=== PATIENT | male | born 1965 | race Caucasian/White ===

== ENCOUNTER 2016-09-20 14:38 | Inpatient (IN) | payer OTHER ==
[~2016-09-20] VITALS: Ht 177.8 cm; Wt 112.9 kg
[2016-09-20 14:40] VITALS: BP 107/58; PULSE 88; RESP 18; TEMP 98; O2SAT 100
--- NOTE | 2016-09-20 14:40 | NUR ---
Arrived via S ambulance for bright red blood from colostomy. Placed in room 1. Placed on teletypesetter monitor, blood pressure machine and pulse oximeter. To gown for exam. Side rails up. Report given to Diane ALBERTO.
--- NOTE | 2016-09-20 14:45 | NUR ---
PT. PLACED IN BED 1
[2016-09-20] MEDS ORDERED: NS 500 ML IV SCH (14:46)
--- NOTE | 2016-09-20 14:50 | NUR ---
DR. WILLINGHAM AT BEDSIDE EXAMINING THE PT.
[2016-09-20] MEDS ORDERED: MORPHINE 4 MG/ML INJ. SYRINGE IVP ONE (15:00)
[2016-09-20] MEDS ORDERED: ONDANSETRON HCL 4 MG/2 ML VIAL IVP ONE (15:00)
--- NOTE | 2016-09-20 15:00 | NUR ---
X RAY AT BEDSIDE
--- NOTE | 2016-09-20 15:55 | NUR ---
PT. MEDICATED VIA PICC LINE, TOLERATED WELL
[2016-09-20 16:03] LABS: BASOPHILS % (AUTO) 0.6 % (0.0-2.0); EOSINOPHILS # (AUTO) 0.3 K/uL (0.0-0.4); EOSINOPHILS % (AUTO) 3.9 % (0.0-4.0); HEMATOCRIT 35.5 % (36-54); HEMOGLOBIN 11.3 g/dL (14.0-18.0); LYMPHOCYTES # (AUTO) 1.2 K/uL (1.0-5.5); LYMPHOCYTES % (AUTO) 14.7 % (20.5-51.5); MEAN CORPUSCULAR HEMOGLOBIN 25 pg (27-31); MEAN CORPUSCULAR HGB CONC 32 % (32-36); MEAN CORPUSCULAR VOLUME 78 fL (79.0-98.0); MONOCYTES # (AUTO) 0.5 K/uL (0.0-1.0); MONOCYTES % (AUTO) 6.8 % (1.7-9.3); NEUTROPHILS # (AUTO) 5.9 K/uL (1.8-7.7); PLATELET COUNT (AUTO) 219 K/uL (130-430); RED BLOOD CELL COUNT(AUTO) 4.54 MIL/uL (4.2-6.2); RED CELL DISTRIBUTION WIDTH 15.8 % (9.0-15.0); WHITE BLOOD COUNT (AUTO) 7.9 K/uL (4.8-10.8)
[2016-09-20 16:08] LABS: CALCIUM 8.7 mg/dL (8.4-11.0); CREATININE 2.17 mg/dL (0.55-1.30); POTASSIUM 4.3 mmol/L (3.5-5.1)
[2016-09-20 16:23] LABS: ALBUMIN 2.9 g/dL (3.4-4.8); TOTAL BILIRUBIN 0.2 mg/dL (0.0-1.0); TOTAL PROTEIN, SERUM 7.5 g/dL (6.4-8.3)
[2016-09-20 16:35] LABS: PROTHROMBIN TIME 10.9 SECS (9.5-12.5)
--- NOTE | 2016-09-20 16:45 | NUR ---
# 16 FR Olson catheter with use of sterile technique. Immediate return of 20 cc YELLOW urine noted. Bedside drainage bag placed below level of bladder. Urine sample collected and sent to lab. Pt tolerated procedure WELL. Patient arrived with olson in place, changed due to standard of practice prior to admission.
--- NOTE | 2016-09-20 17:05 | NUR ---
Patient will be admitted to care of DR. SHAH. Admitted to TELE unit. Will go to room 104 A Summary report printed. Report given to LIT ALBERTO.
--- NOTE | 2016-09-20 17:18 | NUR ---
ADMISSION NOTE Received patient from ER via gurney. Patient admitted with diagnosis of . Patient is awake, alert, oriented X 3. Patient oriented to hospital room, call light, toileting, pain management and safety-teach back done. Patient informed that LIT will be HIS nurse and that their room number is 104A. Personal belongings checked and Belongings List documented. Call light within reach.
[2016-09-20] MEDS ORDERED: LORazepam 2 MG/ML VIAL IVP PRN (17:45)
[2016-09-20] MEDS ORDERED: ACETAMINOPHEN 325 MG TABLET PO PRN (17:45)
[2016-09-20] MEDS ORDERED: ONDANSETRON HCL 4 MG/2 ML VIAL IVP PRN (17:45)
[2016-09-20] MEDS ORDERED: ZOLPIDEM TARTRATE 5 MG TABLET PO PRN (17:45)
[2016-09-20] MEDS ORDERED: POTASSIUM CHLORIDE 10 MEQ TAB.PRT.SR PO PRN (17:45)
[2016-09-20] MEDS ORDERED: MAGNESIUM SULFATE 50 ML IV PRN (17:45)
[2016-09-20] MEDS ORDERED: DOCUSATE SODIUM 100 MG CAPSULE PO PRN (17:45)
[2016-09-20] MEDS: MORPHINE 2 MG/ML INJ. SYRINGE IVP PRN ×2 (18:24→22:31)
[2016-09-20 18:27] VITALS: BP 100/59; PULSE 72; RESP 16; TEMP 98.2; O2SAT 98
--- NOTE | 2016-09-20 18:34 | NUR ---
GI CONSULT (Dr Pinzon o/c) Consult was called, , dianne Cintron, "Dr Pinzon is scientist electronics" RE GI bleed
[2016-09-20] MEDS ORDERED: HYDR2TAB34 PO (18:39)
[2016-09-20] MEDS ORDERED: LIP20 PO (18:41)
[2016-09-20] MEDS ORDERED: GABA-531 PO (18:54)
--- NOTE | 2016-09-20 19:15 | NUR ---
change of shift6.initial pt's assessment.pt.presents trach:talking:able 2 convey needs:mouth articulate words: understood.pt.presents paraplegic status.resting upon air-mattress.pt.presents olson catheter. pt.presents picc- line:location:rt.bicept:2-lumes.iv fluids infusing via line.pt.presents colostomy.call light w/in pt's reach.
[2016-09-20] MEDS ORDERED: MIDO10TA PO (19:25)
[2016-09-20 19:30] VITALS: BP 105/66; PULSE 85; RESP 18; TEMP 97.6; O2SAT 100
[2016-09-20] MEDS ORDERED: FAMO20TA8 PO (19:33)
[2016-09-20] MEDS ORDERED: QUET200T5 PO (19:35)
--- NOTE | 2016-09-20 19:35 | NUR ---
notes received the pt from the day nurse. pt a/a/ox4 picc line intact to rt upper arm,no redness or swelling noted trach intact with t bar in place at 2l/min.monitor in place and shows.SR olson catheter intact and draining clear yellow urine.colostomy bag intact but is empty.pt is a paraplegic call light within reach,safety measures in progress.pt watching tv with no complaints.continue to monitor.
[2016-09-20] MEDS ORDERED: ARIP2TAB9 PO (19:36)
[2016-09-20] MEDS ORDERED: TRAZ-123 PO (19:37)
--- NOTE | 2016-09-20 20:00 | NUR ---
pt.assessed.pt.presents quiescent affect;calm,viewing tv programming.2 clarify pt's dietary status.josy placed telephone call 2 the
--- NOTE | 2016-09-20 20:33 | NUR ---
notes call placed to dr la for a diet order.
--- NOTE | 2016-09-20 20:44 | NUR ---
Paged Dr Ness,[phone] Dr Ness answered & I transferred the call to LUIS ALBERTO Fraire.
--- NOTE | 2016-09-20 20:52 | NUR ---
notes dr la called back and gave an order.
--- NOTE | 2016-09-20 20:55 | NUR ---
notes colostomy bag full and was changed,stool is brown liquid with no blood seen.
[2016-09-20] MEDS ORDERED: FAMOTIDINE 20 MG TABLET PO SCH (21:00)
--- NOTE | 2016-09-20 21:35 | NUR ---
notes mrsa sent to the lab,sandwich and juice given.
--- NOTE | 2016-09-20 22:00 | NUR ---
pt.assessed.pt.presents quiescent affect;calm,viewing tv programming.
--- NOTE | 2016-09-20 22:30 | NUR ---
pt.requested pain medication.i have administered morphine:2mg ivp.vis picc line.call light w/in pt's reach.
--- NOTE | 2016-09-20 23:25 | NUR ---
notes went to put seizure pads on the bed but pt states he only had 1 seizure in 2009.refusing the pads.
[2016-09-21] VITALS (8 sets, daily range): BP systolic 91–136; BP diastolic 54–76; PULSE 62–97; RESP 18–20; TEMP 97.2–99.8; O2SAT 95–100
--- NOTE | 2016-09-21 | NUR ---
pt.assessed.pt.presents quiescent affect;calm,asleep.iv fluids infusing.call light w/in pt's reach.
--- NOTE | 2016-09-21 01:27 | NUR ---
notes pt sleeping,no distress noted.continue to monitor.
--- NOTE | 2016-09-21 02:00 | NUR ---
pt.assessed.pt.presents quiescent affect;calm,asleep,call light w/in pt's reach.
[2016-09-21] MEDS: MORPHINE 2 MG/ML INJ. SYRINGE IVP PRN ×2 (02:28→06:41)
--- NOTE | 2016-09-21 02:30 | NUR ---
pt.requested pain medication:i have administered morphine:2mg ivp via picc line.i have set-up the pt.4 suction.i have provided suction 2 oral cavity,i have provided deep-suction 2 trach.i have cleaned and provided trach care.i have changed the iv fluids primary line:line was cut& leaking.i have provided ice-chips 2 maintain fresh oral cavity.
--- NOTE | 2016-09-21 03:18 | NUR ---
notes pt awake and was suctioned by the RN ,trach care also given with dressing change.continue to monitor.
--- NOTE | 2016-09-21 04:00 | NUR ---
pt.assessed.pt.presents quiescent affect;calm,asleep.call light placed w/in pt's reach.
[2016-09-21] MEDS: D5NS 1,000 ML IV SCH ×2 (05:03→09:39)
--- NOTE | 2016-09-21 05:24 | NUR ---
notes pt sleeping continue to monitor.
--- NOTE | 2016-09-21 06:26 | NUR ---
closing notes pt awake ,alert watching tv with no complaints,will endorse the care of the pt to the day nurse.
--- NOTE | 2016-09-21 06:36 | NUR ---
pt.requesting pain medication:i have administered morphine:2mg ivp.via picc line.call light placed w/in pt's reach. pt.requested cranberry juice x 2 cups.
[2016-09-21 07:21] LABS: BASOPHILS % (AUTO) 0.5 % (0.0-2.0); EOSINOPHILS # (AUTO) 0.3 K/uL (0.0-0.4); EOSINOPHILS % (AUTO) 3.9 % (0.0-4.0); HEMATOCRIT 32.2 % (36-54); HEMOGLOBIN 10.4 g/dL (14.0-18.0); LYMPHOCYTES # (AUTO) 1.1 K/uL (1.0-5.5); LYMPHOCYTES % (AUTO) 15.1 % (20.5-51.5); MEAN CORPUSCULAR HEMOGLOBIN 25 pg (27-31); MEAN CORPUSCULAR HGB CONC 32 % (32-36); MEAN CORPUSCULAR VOLUME 78 fL (79.0-98.0); MONOCYTES # (AUTO) 0.5 K/uL (0.0-1.0); MONOCYTES % (AUTO) 7.4 % (1.7-9.3); NEUTROPHILS # (AUTO) 5.3 K/uL (1.8-7.7); NEUTROPHILS % (AUTO) 73.1 % (40.0-70.0); PLATELET COUNT (AUTO) 234 K/uL (130-430); RED BLOOD CELL COUNT(AUTO) 4.14 MIL/uL (4.2-6.2); RED CELL DISTRIBUTION WIDTH 15.7 % (9.0-15.0); WHITE BLOOD COUNT (AUTO) 7.2 K/uL (4.8-10.8)
[2016-09-21 07:26] LABS: CALCIUM 8.4 mg/dL (8.4-11.0); CREATININE 2.38 mg/dL (0.55-1.30); POTASSIUM 4.1 mmol/L (3.5-5.1)
--- NOTE | 2016-09-21 08:00 | NUR ---
PT IN BED, AAO, NO SOB, NO DISTRESS, TRACH INTACT AND IN PLACE, PT STILL C/O PAIN, TOLD HIM HIS BP IS LOW AND PAIN MED IS NOT DUE YET.
[2016-09-21] MEDS: PANTOPRAZOLE SODIUM 40 MG/VIAL (PROTONIX) IV SCH (09:29)
--- NOTE | 2016-09-21 09:45 | NUR ---
Notes Page sent out to Dr. Ness to inform of patient's complaint of pain.
--- NOTE | 2016-09-21 09:48 | NUR ---
Nutrition Update Alvaro Scale 13 noted. Pt admitted for GI bleed. Diet: regular BMI: 35.9 kg/m2 RD to follow per nutrition care standards.
--- NOTE | 2016-09-21 10:00 | NUR ---
PT IN BED, AA, NO C/O PAIN THIS TIME.
--- NOTE | 2016-09-21 11:52 | NUR ---
PT IN BED, RESTING COMFORTABLY, ASLEEP, NO S/SX PAIN, NO DISTRESS
[2016-09-21] MEDS: HYDROmorphone 2 MG/ML VIAL IVP PRN ×2 (12:53→19:16)
--- NOTE | 2016-09-21 14:00 | NUR ---
NOTES NO C/O PAIN THIS TIME, PT RESTING COMPFORTABLY IN BED, NO SOB, NO DISTRESS, EMPTY COLOSTOMY BAG.
[2016-09-21] MEDS ORDERED: BISACODYL 5 MG TABLET.DR (DULCOLAX) PO ONE (17:00)
[2016-09-21 17:26] LABS: BILIRUBIN,URINE NEGATIVE (NEGATIVE); BLOOD, URINE 3+ (NEGATIVE); CLARITY/URINE CLOUDY (CLEAR); COLOR,URINE YELLOW (YELLOW); GLUCOSE,URINE NEGATIVE (NEGATIVE); KETONES,URINE NEGATIVE (NEGATIVE); LEUKOCYTE ESTERASE ,URINE 3+ (NEGATIVE); NITRITE, URINE POSITIVE (NEGATIVE); PROTEIN URINE 2+ (NEGATIVE); UROBILINOGEN,URINE 0.2 (0.2-1.0)
[2016-09-21 17:53] LABS: BACTERIA,URINE MODERATE /HPF (None Seen); RBC,URINE 20-50 /HPF (0-3); WBC,URINE >100 /HPF (0-3)
[2016-09-21 17:54] LABS: MUCUS,URINE None Seen /LPF (None Seen)
[2016-09-21] MEDS ORDERED: GOLYTELY / COLYTE SOLUTION 4 LITERS PO ONE (18:00)
--- NOTE | 2016-09-21 18:00 | NUR ---
NOTES; PT IN BED, TOLD PT THAT WE WILL START GOLYTLY TO CLEAM HIS BOWELS FOR THE COLONOSPY IN AM, PT MADE AWARE THAT HE WILL BE NPO AFTER MIDNIGHT.
--- NOTE | 2016-09-21 19:00 | NUR ---
CLOSING NOTES, PT IN BED, PT SIGNED CONSENT FOR COLONOSCOPY AND GIVEN PREP MEDICATIONS. PT RECEIVED PAIN MEDS REQUESTED.
--- NOTE | 2016-09-21 20:03 | NUR ---
Opening Note Report received from Mauro ALBERTO. Patient awake. Paraplegic. Trach is connected to t-bar with 2L O2. Suction tray is at the bedside. RUE PICC line running IV fluids. Colostomy bag on the right abdomen. Patient is scheduled for a colonoscopy tomorrow. Prep is at the bedside. Will encourage patient to drink.
--- NOTE | 2016-09-21 22:03 | NUR ---
Rounds Colostomy bag drained. Encouraged patient to drink more of the GI prep.
[2016-09-22] VITALS (9 sets, daily range): BP systolic 86–118; BP diastolic 50–72; PULSE 85–102; RESP 12–20; TEMP 96.4–98; O2SAT 92–100; Ht 177.8 cm; Wt 112.9 kg
--- NOTE | 2016-09-22 00:10 | NUR ---
Rounds Patient is resting in bed. Bed bath was offered by the CERTIFIED ANESTHESIOLOGIST ASSISTANT but patient refused. Patient is has thick, white secretions. Deep suction preformed.
[2016-09-22] MEDS: HYDROmorphone 2 MG/ML VIAL IVP PRN ×5 (02:04→23:36)
[2016-09-22] MEDS: D5NS 1,000 ML IV SCH ×2 (02:09→14:36)
--- NOTE | 2016-09-22 02:10 | NUR ---
Rounds Bed bath was offered to the patient again. Bath was refused by patient. Deep suction was preformed. Patient tolerated well. Ileostomy bag was emptied.
--- NOTE | 2016-09-22 04:15 | NUR ---
Rounds Patient is currently sleeping in bed. GI prep has been offered to the patient several times. Patient has been refusing to take GI prep. Will follow up with Dr. Sung later on this morning.
--- NOTE | 2016-09-22 05:47 | NUR ---
Rounds Patient refused to have his colostomy bag drained and to drink any of more of the GI prep. Will call MD later on this morning.
--- NOTE | 2016-09-22 06:25 | NUR ---
MD Called Called Dr. Sung to notify him that the patient is refusing to drink the GI prep. Waiting for a call back.
--- NOTE | 2016-09-22 07:00 | NUR ---
HANDOFF ROUNDS AT PATIENT BEDSIDE.
[2016-09-22 07:39] LABS: BASOPHILS % (AUTO) 0.4 % (0.0-2.0); EOSINOPHILS # (AUTO) 0.5 K/uL (0.0-0.4); EOSINOPHILS % (AUTO) 7.7 % (0.0-4.0); HEMATOCRIT 30.2 % (36-54); HEMOGLOBIN 9.7 g/dL (14.0-18.0); LYMPHOCYTES # (AUTO) 0.9 K/uL (1.0-5.5); LYMPHOCYTES % (AUTO) 14.1 % (20.5-51.5); MEAN CORPUSCULAR HEMOGLOBIN 25 pg (27-31); MEAN CORPUSCULAR HGB CONC 32 % (32-36); MEAN CORPUSCULAR VOLUME 79 fL (79.0-98.0); MONOCYTES # (AUTO) 0.5 K/uL (0.0-1.0); MONOCYTES % (AUTO) 7.6 % (1.7-9.3); NEUTROPHILS # (AUTO) 4.6 K/uL (1.8-7.7); NEUTROPHILS % (AUTO) 70.2 % (40.0-70.0); PLATELET COUNT (AUTO) 212 K/uL (130-430); RED BLOOD CELL COUNT(AUTO) 3.82 MIL/uL (4.2-6.2); RED CELL DISTRIBUTION WIDTH 16.1 % (9.0-15.0); WHITE BLOOD COUNT (AUTO) 6.5 K/uL (4.8-10.8)
[2016-09-22 07:48] LABS: PROTHROMBIN TIME 11.2 SECS (9.5-12.5)
[2016-09-22 07:57] LABS: CALCIUM 8.1 mg/dL (8.4-11.0); CREATININE 2.34 mg/dL (0.55-1.30)
--- NOTE | 2016-09-22 09:00 | NUR ---
ROUNDS TO PATIENT. GIVEN PRN FOR PAIN THIS HOUR.
[2016-09-22] MEDS: PANTOPRAZOLE SODIUM 40 MG/VIAL (PROTONIX) IV SCH (09:35)
--- NOTE | 2016-09-22 11:00 | NUR ---
PATIENT ENCOURAGED TO HAVE MORE GOLYTELY. HAS 4 CUPS (240ML) OF PREP REMAINING.
--- NOTE | 2016-09-22 11:45 | NUR ---
PULMONARY CONSULT Spoke with Mila regarding request for consultation with Dr. Castro ([phone]) for reason: pt wants decannulation.
[2016-09-22] MEDS ORDERED: cefTRIAXone 1 GM in D5W 50 ML IV ONE (12:00)
[2016-09-22] MEDS ORDERED: IPRATROPIUM/ALBUTEROL SULFATE 3 ML AMPUL.NEB INH PRN (12:15)
--- NOTE | 2016-09-22 13:00 | NUR ---
WOUND CARE ROUNDS. INTERDRY AND Eunice-RAYMUNDO RECOMMENDATION IMPLEMENTED.
--- NOTE | 2016-09-22 13:48 | NUR ---
UTILIZATION REVIEW NURSE DENIES REQUEST FOR REMOVAL OF TRACH AT THIS TIME. IT WILL TAKE MORE WORK PRIOR TO HAVING THIS INTERVENTION.
[2016-09-22] MEDS ORDERED: MIDAZOLAM HCL 5 MG/5 ML VIAL ONE (16:34)
[2016-09-22] MEDS ORDERED: fentaNYL CITRATE/PF 100 MCG/2 ML AMP ONE (16:35)
[2016-09-22] MEDS ORDERED: fentaNYL CITRATE/PF 100 MCG/2 ML AMP IVP ONE (17:15)
[2016-09-22] MEDS ORDERED: MIDAZOLAM HCL 2 MG/2 ML VIAL (VERSED) IVP ONE (17:15)
[2016-09-22] MEDS: IPRATROPIUM BROM 0.5 MG/2.5 ML VIAL.NEB (ATROVENT) INH SCH (19:53)
[2016-09-22] MEDS: ALBUTEROL SULFATE 0.083% 2.5 MG/3 ML VIAL.NEB INH SCH (19:54)
--- NOTE | 2016-09-22 20:00 | NUR ---
OPENING NOTE RECEIVED PATIENT AWAKE RESTING IN BED. NO S/S RESP DISTRESS. TRACH NOTED WITH TBAR AT 2LITERS.. 02 SAT 100% MCCAULEY CATH WITH CLEAR YELLOW URINE. NEW SECURE LOCK DEVICE IN PLACE. COLOSTOMY TO RIGHT LOWER QUADRANT WITH GREENISH LIQUID. RIGHT UPPER ARM PICC DOUBLE LUMEN D5NS a 90ML/H.SEIZURE PADS IN PLACE FOR SEIZURE PRECAUTIONS. SAFETY PRECAUTIONS IN PLACE.
--- NOTE | 2016-09-22 23:30 | NUR ---
PAIN PAIN MEDICATIONS GIVEN NEEDED FOR PAIN IN LEGS. WILL CONTINUE TO MONITOR AND REASSESS PAIN.
[2016-09-23 00:22] VITALS: BP 116/74; PULSE 89; RESP 19; TEMP 97.4; O2SAT 99
[2016-09-23] MEDS: ALBUTEROL SULFATE 0.083% 2.5 MG/3 ML VIAL.NEB INH SCH ×3 (00:34→13:55)
[2016-09-23] MEDS: IPRATROPIUM BROM 0.5 MG/2.5 ML VIAL.NEB (ATROVENT) INH SCH ×3 (00:34→13:55)
--- NOTE | 2016-09-23 03:10 | NUR ---
ROUNDS PT REPOSITIONED FOR COMFORT AND SAFETY. SUCTIONED NEEDED. PAIN MED TO BE GIVEN WHEN DUE AT 0330.
[2016-09-23] MEDS: D5NS 1,000 ML IV SCH (03:27)
[2016-09-23] MEDS: HYDROmorphone 2 MG/ML VIAL IVP PRN ×4 (03:28→15:48)
[2016-09-23 04:32] VITALS: BP 112/66; PULSE 86; RESP 18; TEMP 98.6; O2SAT 99
[2016-09-23 07:14] LABS: BASOPHILS % (AUTO) 0.4 % (0.0-2.0); EOSINOPHILS # (AUTO) 0.3 K/uL (0.0-0.4); EOSINOPHILS % (AUTO) 4.5 % (0.0-4.0); HEMATOCRIT 29.6 % (36-54); HEMOGLOBIN 9.4 g/dL (14.0-18.0); LYMPHOCYTES # (AUTO) 0.9 K/uL (1.0-5.5); LYMPHOCYTES % (AUTO) 12.7 % (20.5-51.5); MEAN CORPUSCULAR HEMOGLOBIN 25 pg (27-31); MEAN CORPUSCULAR HGB CONC 32 % (32-36); MEAN CORPUSCULAR VOLUME 79 fL (79.0-98.0); MONOCYTES # (AUTO) 0.6 K/uL (0.0-1.0); MONOCYTES % (AUTO) 7.6 % (1.7-9.3); NEUTROPHILS # (AUTO) 5.5 K/uL (1.8-7.7); NEUTROPHILS % (AUTO) 74.8 % (40.0-70.0); PLATELET COUNT (AUTO) 204 K/uL (130-430); RED BLOOD CELL COUNT(AUTO) 3.77 MIL/uL (4.2-6.2); RED CELL DISTRIBUTION WIDTH 15.9 % (9.0-15.0); WHITE BLOOD COUNT (AUTO) 7.3 K/uL (4.8-10.8)
[2016-09-23 07:24] LABS: CALCIUM 7.9 mg/dL (8.4-11.0); CREATININE 2.2 mg/dL (0.55-1.30); POTASSIUM 3.3 mmol/L (3.5-5.1)
[2016-09-23 07:59] VITALS: BP 120/55; PULSE 109; RESP 18; TEMP 97.6; O2SAT 94
--- NOTE | 2016-09-23 08:00 | NUR ---
AM ROUNDS: PATIENT LYING IN THE BED,AWAKE,ALERT AND ORIENTED X3. WITH TRACH,T-BAR AT 2L/MIN,GOOD SATURATION.RIGHT UPPER ARM PICCLINE,IVF ON GOING,IN PLACED. WITH RIGHT QUADRANT COLOSTOMY BAG,WITH BROWNISH COLOR SOFT FORM STOOLS AND SOME LIQUID NOTED. NO DISTRESS THIS TIME. CALL LIGHT WITH IN REACH. NEEDS ATTENDED TO.
[2016-09-23] MEDS ORDERED: cefTRIAXone 1 GM in D5W 50 ML IV SCH (09:00)
[2016-09-23] MEDS ORDERED: 0.45% NACL 1,000 ML IV SCH (09:15)
[2016-09-23] MEDS: PANTOPRAZOLE SODIUM 40 MG/VIAL (PROTONIX) IV SCH (09:33)
--- NOTE | 2016-09-23 10:10 | NUR ---
ROUNDS: RT SUCTIONED VIA TRACH,OBTAINED LARGE AMOUNT OF SCHULTZ COLOR DISCHARGES. STABLE.
--- NOTE | 2016-09-23 11:02 | NUR ---
Consultation Called Reason for consultation: ostomy malfunction was consult called: yes person who was notified: Nisha Consulting Physician: Michelet Pires
--- NOTE | 2016-09-23 11:20 | NUR ---
SURGEON : SPOKE WITH DR RIVERA AND WILL SEE PT TODAY.
--- NOTE | 2016-09-23 11:33 | NUR ---
PAIN MEDS: C/O RIGHT LEG PAIN AND DUE IV PAIN MEDS GIVEN PER REQUEST.
[2016-09-23 12:57] VITALS: BP 124/62; PULSE 107; RESP 18; TEMP 97.6; O2SAT 93
--- NOTE | 2016-09-23 13:00 | NUR ---
ROUNDS: RT CAME DID BREATHING TREATMENT. NO DISTRESS.
--- NOTE | 2016-09-23 13:08 | NUR ---
DISCHARGE PLANNING DC planning back to [facility]. Faxed referral [phone]. will follow up. Addendum: 09/23/16 at 1445 by Alexsandra MACK Spoke with Tremayne in admitting at [facility] patient assigned to room [facility] RN to report [phone], bed available after 7pm today. Called [facility] ambulance [phone] spoke with Katharina arranged CCT ([facility] w/O2) transport sweet pickle maker 7pm. Placed transportation packet in nurse station. RN Lucinda made aware. Called patient brother Reymundo Nixon [phone] call was answered and DCP was told had wrong number, confirmed number on facesheet with man who answered the phone and said right number but no Reymundo Nixon at the number that was called. Addendum: 09/23/16 at 1504 by Alexsandra Rodríguez DP Called [facility] ambulance [phone] placed CCT transport on will call. Addendum: 09/23/16 at 1657 by Alexsandra Rodríguez DP Per DOLLY Jane patient cleared for discharge. Called [facility] ambulance [phone] spoke with Pebbles loja CCT transport sweet pickle maker soonest available 6:30pm. DOLLY Jane made aware.
--- NOTE | 2016-09-23 15:00 | NUR ---
ROUNDS: RESTING. TRACH T-BAR 2L/MIN,TOLERATED BY THE PATIENT.
--- NOTE | 2016-09-23 15:50 | NUR ---
PAIN MEDS: C/O RIGHT LEG PAIN AND DUE IV PAIN MEDS GIVEN PER REQUEST.
[2016-09-23 16:36] VITALS: BP 132/76; PULSE 90; RESP 18; TEMP 97; O2SAT 98
[2016-09-23 16:56] VITALS: BP 132/76; PULSE 111; RESP 18; TEMP 97; O2SAT 98
--- NOTE | 2016-09-23 17:16 | NUR ---
REPORT: REPORT GIVEN TO KELSEY ALBERTO FROM [facility].
--- NOTE | 2016-09-23 17:31 | NUR ---
PAGED: SPOKE WITH DR SHAH AND INFORMED HIM PATIENT WAS CLEARED BY DR RIVERA.WITH ORDERS DC TRANSFER BACK TO [facility] ,KEEP PICCLINE AND MCCAULEY IN.CONTINUE IV ROCEPHINE X 5 MORE DAYS.
--- NOTE | 2016-09-23 19:35 | NUR ---
dc transfer: transition care document given to ambulance staff.piccline and olson kept in as ordered.ileostomy care rendered and changed new bag.on trach t-bar 2l/min,good saturation.[facility] ambulance with cct transported patient back to [facility] in stable condition.
== END 2016-09-23 19:35 | DRG 377 ==
LOC: SED 14:38 → STU 16:33 → SMU 09-21 18:44
PROVIDERS: ADMIT General Practice; ATTEND General Practice
PROC: 0DJD8ZZ Inspection of Lower Intestinal Tract, Via Natural or Artificial Opening Endoscopic (ICD-10-PCS; principal; 2016-09-22 16:00)
DX: K92.2 Gastrointestinal hemorrhage, unspecified (principal); N17.0 Acute kidney failure with tubular necrosis; J96.10 Chronic respiratory failure, unspecified whether with hypoxia or hypercapnia; G82.20 Paraplegia, unspecified; E44.0 Moderate protein-calorie malnutrition; N39.0 Urinary tract infection, site not specified; G89.29 Other chronic pain; E66.01 Morbid (severe) obesity due to excess calories; E78.5 Hyperlipidemia, unspecified; G40.909 Epilepsy, unspecified, not intractable, without status epilepticus; D64.9 Anemia, unspecified; F20.9 Schizophrenia, unspecified; Z93.0 Tracheostomy status; Z93.2 Ileostomy status; Z93.3 Colostomy status; Z88.0 Allergy status to penicillin; Z88.8 Allergy status to other drugs, medicaments and biological substances; Z68.35 Body mass index [BMI] 35.0-35.9, adult; Z87.891 Personal history of nicotine dependence
CPT/HCPCS: 36415; 45378; 71010; 80048; 80053; 81000-TC; 83605; 83735-TC; 83880; 85025; 85610-TC; 85730-TC; 86886; 86900; 86901; 87040-TC; 87081; 87086; 87186-TC; 93005; 94640; 94760; 96374; 96375; 99285; A5061; C9113; J0696; J1170; J2250; J2270; J2405; J3010; J7042; J7060

== ENCOUNTER 2016-10-14 18:23 | Inpatient (IN) | payer OTHER ==
[~2016-10-14] VITALS: Ht 175.3 cm; Wt 113.9 kg
[2016-10-14 18:23] VITALS: PULSE 95; RESP 24; TEMP 98.2; O2SAT 100
[~2016-10-14 18:23] MED LIST: ARIP2TAB9 PO; FAMO20TA8 PO; GABA-531 PO; HYDR2TAB34 PO; LIP20 PO; MIDO10TA PO; QUET200T5 PO; TRAZ-123 PO
--- NOTE | 2016-10-14 18:23 | NUR ---
Placed in room 08, sent from Jennifer Herron for low ph 7.14, pO2 204 abg done today. Placed on site monitor, blood pressure machine and pulse oximeter. To gown for exam. Side rails up.
[2016-10-14] MEDS ORDERED: IPRATROPIUM BROM 0.5 MG/2.5 ML VIAL.NEB (ATROVENT) IH ONE (18:30)
[2016-10-14] MEDS ORDERED: ALBUTEROL SULFATE 0.083% 2.5 MG/3 ML VIAL.NEB IH ONE (18:30)
--- NOTE | 2016-10-14 18:31 | NUR ---
RT at bedside for ABG draw
--- NOTE | 2016-10-14 18:36 | NUR ---
MSE complete by Dr. Lobo
[2016-10-14 18:51] LABS: ABG TOTAL HEMOGLOBIN 11.7 G/dL (12.0-18.0); BLOOD GAS BASE EXCESS -13.3 mmol/L (-3.0-3.0); BLOOD GAS COHb% 0.1 % (0.5-1.5); BLOOD GAS HHB 1.6 % (0.0-6.0); BLOOD GAS PH 7.169 (7.350-7.450); BLOOD O2Hb% 97.6 % (94.0-97.0)
[2016-10-14] MEDS ORDERED: ALBUTEROL SULFATE 0.083% 2.5 MG/3 ML VIAL.NEB INH ONE (19:03)
[2016-10-14] MEDS ORDERED: SIME80TA PO (19:08)
[2016-10-14] MEDS ORDERED: GUAI600T86 PO (19:08)
[2016-10-14] MEDS ORDERED: BACL10TA PO (19:08)
[2016-10-14] MEDS ORDERED: LEVE500T13 PO (19:08)
[2016-10-14] MEDS ORDERED: IPRA0.2S6 INH (19:08)
[2016-10-14] MEDS ORDERED: HYDR-1189 PO (19:08)
[2016-10-14] MEDS ORDERED: ALBU2.5V7 INH ×2 (19:08)
--- NOTE | 2016-10-14 19:08 | NUR ---
Medication reconciliation completed with information provided by Jennifer Herron. Any prior medication reconciliation on file was reviewed and corrected.
[2016-10-14 19:13] LABS: CALCIUM 8.5 mg/dL (8.4-11.0); CREATININE 3.02 mg/dL (0.55-1.30); POTASSIUM 4.4 mmol/L (3.5-5.1)
[2016-10-14 19:19] LABS: BASOPHILS # (AUTO) 0.1 K/uL (0.0-0.2); BASOPHILS % (AUTO) 0.7 % (0.0-2.0); EOSINOPHILS # (AUTO) 0.5 K/uL (0.0-0.4); EOSINOPHILS % (AUTO) 5.6 % (0.0-4.0); HEMATOCRIT 35.3 % (36-54); HEMOGLOBIN 11.5 g/dL (14.0-18.0); LYMPHOCYTES # (AUTO) 1.1 K/uL (1.0-5.5); LYMPHOCYTES % (AUTO) 12.9 % (20.5-51.5); MEAN CORPUSCULAR HEMOGLOBIN 25 pg (27-31); MEAN CORPUSCULAR HGB CONC 33 % (32-36); MEAN CORPUSCULAR VOLUME 77 fL (79.0-98.0); MONOCYTES # (AUTO) 0.6 K/uL (0.0-1.0); MONOCYTES % (AUTO) 7.1 % (1.7-9.3); NEUTROPHILS # (AUTO) 6.3 K/uL (1.8-7.7); NEUTROPHILS % (AUTO) 73.7 % (40.0-70.0); PLATELET COUNT (AUTO) 332 K/uL (130-430); RED BLOOD CELL COUNT(AUTO) 4.58 MIL/uL (4.2-6.2); RED CELL DISTRIBUTION WIDTH 17.1 % (9.0-15.0); WHITE BLOOD COUNT (AUTO) 8.6 K/uL (4.8-10.8)
[2016-10-14 19:21] LABS: ALBUMIN 3.1 g/dL (3.4-4.8); TOTAL BILIRUBIN 0.2 mg/dL (0.0-1.0); TOTAL PROTEIN, SERUM 7.9 g/dL (6.4-8.3)
[2016-10-14 19:24] LABS: PROTHROMBIN TIME 10.6 SECS (9.5-12.5)
--- NOTE | 2016-10-14 20:18 | NUR ---
# 22 gauge angiocath placed on the right hand. Use of asceptic technique. Opsite placed over site. Blood return noted. Blood for lab drawn from site. Flushed with 10 cc of normal saline. No evidence of infiltration noted. Patient tolerated well.
[2016-10-14] MEDS ORDERED: NACL 0.9% 1,000 ML IV ONE (20:40)
[2016-10-14] MEDS ORDERED: DIPHENHYDRAMINE INJ 50 MG/ML VIAL IVP ONE (20:45)
[2016-10-14] MEDS ORDERED: MORPHINE 2 MG/ML INJ. SYRINGE IVP ONE (20:45)
[2016-10-14 21:02] LABS: BILIRUBIN,URINE NEGATIVE (NEGATIVE); BLOOD, URINE 3+ (NEGATIVE); CLARITY/URINE SL CLOUDY (CLEAR); COLOR,URINE YELLOW (YELLOW); GLUCOSE,URINE NEGATIVE (NEGATIVE); KETONES,URINE NEGATIVE (NEGATIVE); LEUKOCYTE ESTERASE ,URINE 3+ (NEGATIVE); NITRITE, URINE POSITIVE (NEGATIVE); PROTEIN URINE 1+ (NEGATIVE); UROBILINOGEN,URINE 0.2 (0.2-1.0)
[2016-10-14 21:18] LABS: BACTERIA,URINE MANY /HPF (None Seen); MUCUS,URINE None Seen /LPF (None Seen); RBC,URINE 20-50 /HPF (0-3); WBC,URINE >100 /HPF (0-3)
--- NOTE | 2016-10-14 21:35 | NUR ---
Transfer to [facility] [place] via [facility] protocol. Licensed nurse present. IV fluid NS 100ml/hr infusing at the time. present no signs or symptoms of infiltration. Report given to salma ALBERTO.
[2016-10-14 21:41] VITALS: BP 127/71; PULSE 103; RESP 20; TEMP 98.6; O2SAT 97
--- NOTE | 2016-10-14 21:41 | NUR ---
ADMISSION NOTE Received patient from ER via tanner, received report from DOLLY Henry. Patient admitted with diagnosis of RESPIRATORY FAILURE. Patient oriented to hospital routine, call light, toileting and safety-patient verbalized understanding.
--- NOTE | 2016-10-14 21:43 | NUR ---
INITIAL NOTES: TRANSFERRED PATIENT TO BED BUY 4 STAFF.A/O X4. PARAPLEGIC. SKIN CARE AND PHOTO TO REDNESS SKIN AREAS BY ADR RN AND SENIOR SALES REPRESENTATIVE.HAS TRACHE SIZE 7 PORTEX UNCUFFED,DRESSING DRY AND INTACT. DENIES SOB NOR CHEST PAIN EVEN ON SUPINE /LATERAL POSITIONS. ON 4 LITERS OF OXYGEN VIA TRACHE COLLAR/T PIECE. IVF TO RIGHT LITTLE FINGER #22 WITH NS TO START AT 90ML/HR..REGULAR HEART RATE PER PALPATION. AFEBRILE. OBESE. HAS ELEOSTOMY TO MID RIGHT ABDOMEN WITH VERY LOOSE DARK BROWNISH STOOL. HAS MCCAULEY CATHETER WITH HAZY YELLOW COLORED URINE. GROINS INNER THIGHS/ABDOMINAL FOLDS/PERINEAL AREAS/COCCYX AREAS WITH REDNESS AND EXCORIATIONS PRESENT. LOWER LEGS SKIN DRY AND SCALY. SINUS RHYTHM ON TELEMONITOR. WILL CONTINUE TO MONITOR CLOSELY. FEELS HUNGRY. JUICES AND SANDWICH GIVEN FOR SNACK. TOLERATED WELL. REPOSITIONED FOR COMFORT.
[2016-10-14] MEDS ORDERED: ALBUTEROL SULFATE 0.083% 2.5 MG/3 ML VIAL.NEB INH PRN (21:45)
[2016-10-14] MEDS ORDERED: cefTRIAXone 1 GM IVPB PREMIX 50 ML IV ONE (22:29)
--- NOTE | 2016-10-14 22:40 | NUR ---
CONSULTATION PAGED REASON FOR CONSULTATION:RESP FAILURE, ACIDOSIS WAS CONSULT CALLED?Y PERSON WHO WAS NOTIFIED:LEO CONSULTING PHYSICIAN:AMA DUFF [employer] SPECIALTY:PULMONARY TREE [employer] PHONE NUMBER:[phone]
[2016-10-14] MEDS: cefTRIAXone 1 GM in D5W 50 ML IV SCH (22:50)
--- NOTE | 2016-10-14 22:50 | NUR ---
ANTIBIOTIC ORDERED INITIATED AND INFUSED. NO ACUTE DISTRESS.
[2016-10-14] MEDS: NACL 0.9% 1,000 ML IV SCH (23:28)
--- NOTE | 2016-10-14 23:30 | NUR ---
[facility] CALLED REPORTING REASONS WHY SEROQUEL X R ,UNABLE TO HALF IT DUE TO CAPSULE FORM / RECOMMEND REGULAR TABLET, NEURONTIN DUE TO ELEVATED CREATINE, ARE PENDING AND RECOMMENDATIONS.PATIENT FAIRLY STABLE CONDITIONS. CORPORATE HEALTH CONSULTANT AMANDA MADE AWARE. WILL ENDORSE TO AM RN IN AM TO NOTIFY MD.
--- NOTE | 2016-10-14 23:45 | NUR ---
PATIENT RESTING .DENIES RESPIRATORY DISTRESS.
[2016-10-15] VITALS (8 sets, daily range): BP systolic 103–135; BP diastolic 61–85; PULSE 67–98; RESP 16–20; TEMP 97.2–98.3; O2SAT 95–99
--- NOTE | 2016-10-15 01:30 | NUR ---
PATIENT RESTING WITH EYES CLOSE DURING ROUNDS. O2 IN PLACE.
[2016-10-15] MEDS: ALBUTEROL SULFATE 0.083% 2.5 MG/3 ML VIAL.NEB INH SCH ×4 (01:51→21:06)
[2016-10-15] MEDS: IPRATROPIUM BROM 0.5 MG/2.5 ML VIAL.NEB (ATROVENT) INH SCH ×4 (01:51→21:06)
--- NOTE | 2016-10-15 03:00 | NUR ---
VITAL SIGNS TAKEN. DENIES DISTRESS. WANTS TO GO TO SLEEP.
--- NOTE | 2016-10-15 04:30 | NUR ---
PATIENT RESTING WITH EYES CLOSE. NO DISTRESS.
[2016-10-15] MEDS: NACL 0.9% 1,000 ML IV SCH (06:27)
--- NOTE | 2016-10-15 06:30 | NUR ---
CLOSING: SKIN CARE DONE. DRINKING JUICE WITHOUT PROBLEM. DENIES SOB/CHEST PAIN. REDISCUSSED PLAN OF CARE FOR TODAY. VITAL SIGNS STABLE. IVF INFUSING WELL.
[2016-10-15 07:11] LABS: BASOPHILS # (AUTO) 0.1 K/uL (0.0-0.2); BASOPHILS % (AUTO) 0.6 % (0.0-2.0); EOSINOPHILS # (AUTO) 0.4 K/uL (0.0-0.4); EOSINOPHILS % (AUTO) 4.5 % (0.0-4.0); HEMATOCRIT 33.1 % (36-54); HEMOGLOBIN 10.9 g/dL (14.0-18.0); LYMPHOCYTES # (AUTO) 1.2 K/uL (1.0-5.5); LYMPHOCYTES % (AUTO) 11.8 % (20.5-51.5); MEAN CORPUSCULAR HEMOGLOBIN 25 pg (27-31); MEAN CORPUSCULAR HGB CONC 33 % (32-36); MEAN CORPUSCULAR VOLUME 77 fL (79.0-98.0); MONOCYTES # (AUTO) 0.8 K/uL (0.0-1.0); MONOCYTES % (AUTO) 7.6 % (1.7-9.3); NEUTROPHILS # (AUTO) 7.4 K/uL (1.8-7.7); NEUTROPHILS % (AUTO) 75.5 % (40.0-70.0); PLATELET COUNT (AUTO) 274 K/uL (130-430); RED CELL DISTRIBUTION WIDTH 16.9 % (9.0-15.0); WHITE BLOOD COUNT (AUTO) 9.9 K/uL (4.8-10.8)
[2016-10-15 07:16] LABS: CALCIUM 8.1 mg/dL (8.4-11.0); CREATININE 2.98 mg/dL (0.55-1.30); POTASSIUM 4.3 mmol/L (3.5-5.1)
--- NOTE | 2016-10-15 07:25 | NUR ---
AM ROUNDS Pt A/Ox3, C/O pain to right leg..IVF infusing well to right Pinky finger..Pt with T-bar trach with oxygen mask at 4L...FC draining well via gravity..Pt also with Colostomy to right abdomen with brown formed stool...Pt unpleasant and on edge at this time, pt very short and annoyed when asked questions...Pt requesting pain medication at this time...Will inform covering nurse to administer medication...Call light/phone w/in reach...Will cont to monitor
[2016-10-15] MEDS: HYDROmorphone 2 MG/ML VIAL IVP PRN ×3 (08:07→21:44)
[2016-10-15] MEDS: levETIRAcetam 500 MG TABLET PO SCH ×2 (08:26→21:36)
[2016-10-15] MEDS: BACLOFEN 10 MG TABLET PO SCH ×3 (08:26→21:37)
[2016-10-15] MEDS: FAMOTIDINE 20 MG TABLET PO SCH (08:26)
[2016-10-15] MEDS: GABAPENTIN 300 MG CAPSULE PO SCH ×3 (09:00→21:36)
--- NOTE | 2016-10-15 09:01 | NUR ---
Nutrition Update Alvaro Scale 13 noted. Pt admitted for abnormal labs. Diet: regular BMI: 37.1 kg/m2 RD to follow per nutrition care standards.
--- NOTE | 2016-10-15 09:30 | NUR ---
PATIENT RESTING: Patient resting quietly. No acute distress noted. Vital signs within normal range.
[2016-10-15] MEDS: ARIPiprazole 2 MG TAB PO SCH (09:59)
--- NOTE | 2016-10-15 11:00 | NUR ---
PATIENT RESTING: Patient resting quietly. No acute distress noted. Vital signs within normal range.
--- NOTE | 2016-10-15 12:43 | NUR ---
POSITIONED PT UP IN BED FOR LUNCH PT ABLE TO FEED HIMSELF...STATES THAT HE IS FINE AND CAN EAT ALONE..WILL CONT TO MONITO
[2016-10-15] MEDS: SODIUM BICARBONATE 8.4% JECT 100 MEQ in D5W 1,000 ML IV SCH (15:17)
--- NOTE | 2016-10-15 15:41 | NUR ---
ROUNDS PT RESTING...PAIN MEDICATION GIVEN BY COVERING NURSE...WILL CONT TO MONIOTR
--- NOTE | 2016-10-15 17:11 | NUR ---
PT REPOSITIONED AND ILEOSTOMY BAG EMPTIED OF 150ml OF BROWN STOOL PT TOLERATED WELL
--- NOTE | 2016-10-15 17:17 | NUR ---
DELIVERED DINNER TRAY TO PT. PT STATED HE WANTS TO SLEEP RIGHT NOW AND TO JUST LEAVE HIS TRAY AT THE BEDSIDE AND HE WILL CALL FOR ASSISTANCE WHEN HE WAKES UP. NURSE NOTIFIED.
--- NOTE | 2016-10-15 17:18 | NUR ---
PT DOES NOT WANT TO BE BOTHERED FOR A WHILE. HE WOULD LIKE TO SLEEP
[2016-10-15] MEDS ORDERED: QUEtiapine FUMARATE 200 MG TAB.SR.24H PO SCH (18:00)
--- NOTE | 2016-10-15 18:48 | NUR ---
PATIENT RESTING: Patient resting quietly. No acute distress noted. Vital signs within normal range.
--- NOTE | 2016-10-15 19:30 | NUR ---
RECEIVED REPORT FROM LUIS ALBERTO SANCHEZ. PATIENT IN FOWLERS POSITION DROWSY/DINNER TRAY IN FRONT OF HIM.ANSWERING QUESTIONS IN A VERY LOW VOICE. IVF INFUSING, O2 4 LITERS ON VIA TRACHE COLLAR ,PARISA IN .
--- NOTE | 2016-10-15 20:15 | NUR ---
REFUSING TO EAT BY HIMSELF ,WANTS TO BE SPOON FED. PATIENT HAS BEEN SELF FEED. RN AND DOPSTER ALTERNATE FEEDING PATIENT.
--- NOTE | 2016-10-15 20:20 | NUR ---
OXYGEN DEPENDENT. SEE ASSESSMENT FOR MORE DETAILS.
[2016-10-15] MEDS: ATORVASTATIN 20 MG TABLET PO SCH (21:36)
[2016-10-15] MEDS: traZODone HCL 50 MG TABLET (DESYREL) PO SCH (21:36)
[2016-10-15] MEDS: CITRIC ACID/SODIUM CITRATE 30 ML UDC PO SCH (21:38)
[2016-10-15] MEDS: cefTRIAXone 1 GM in D5W 50 ML IV SCH (21:39)
--- NOTE | 2016-10-15 21:40 | NUR ---
PAIN: COMPLAIN OF GENERALIZED AND MORE TO RIGHT LEG. DILAUDID 2MG IV GIVEN.
--- NOTE | 2016-10-15 23:00 | NUR ---
COMFORT: SLEEPING SOUNDLY,WITH O2 ,IVF. IV SITE REINFORCE DRESSINGS.
[2016-10-16] VITALS (7 sets, daily range): BP systolic 92–136; BP diastolic 62–74; PULSE 80–97; RESP 17–20; TEMP 98–99.3; O2SAT 96–100; Ht 175.3 cm; Wt 113.9 kg
[2016-10-16] MEDS: ALBUTEROL SULFATE 0.083% 2.5 MG/3 ML VIAL.NEB INH SCH ×4 (00:44→19:37)
[2016-10-16] MEDS: IPRATROPIUM BROM 0.5 MG/2.5 ML VIAL.NEB (ATROVENT) INH SCH ×4 (00:44→19:37)
--- NOTE | 2016-10-16 02:35 | NUR ---
PATIENT AWAKE. DISCUSSED NEED OF HYGIENE AND SKIN CARE. REFUSE. SAMPLE BODY BUILDER OFFER JUST WASHED FACE AND CHANGE GOWN, REFUSE. NEED TO EMPTY COLOSTOMY ,REFUSE. OFFER TO REPOSITION HEAD ,REFUSE INSTEAD HIT RN TO LEFT BREAST LIGHTLY.
--- NOTE | 2016-10-16 04:00 | NUR ---
NO ACUTE DISTRESS.
--- NOTE | 2016-10-16 06:30 | NUR ---
CLOSING: NO ACUTE CARDIOPULMONARY DISTRESS. NO SEIZURE. REFUSE BATH/HYGIENE WHOLE SHIFT. MCCAULEY /IV PATENT. PATIENT CONTINUE TO TALK.EAT AND DRINK WITH TRACHE. WILL GIVE REPORT TO AM RN.
--- NOTE | 2016-10-16 08:00 | NUR ---
Patient is awake ,alert and trying to talk. Oxygen at 4 liters via T bar ,saturating 100%.
[2016-10-16] MEDS: GABAPENTIN 300 MG CAPSULE PO SCH ×3 (08:38→20:32)
[2016-10-16] MEDS: levETIRAcetam 500 MG TABLET PO SCH ×2 (08:38→20:32)
[2016-10-16] MEDS: BACLOFEN 10 MG TABLET PO SCH ×3 (08:38→20:32)
[2016-10-16] MEDS: FAMOTIDINE 20 MG TABLET PO SCH (08:38)
[2016-10-16] MEDS: CITRIC ACID/SODIUM CITRATE 30 ML UDC PO SCH ×2 (08:39→20:33)
[2016-10-16 08:40] LABS: BASOPHILS % (AUTO) 0.5 % (0.0-2.0); EOSINOPHILS # (AUTO) 0.2 K/uL (0.0-0.4); EOSINOPHILS % (AUTO) 2.8 % (0.0-4.0); HEMATOCRIT 33.4 % (36-54); HEMOGLOBIN 10.7 g/dL (14.0-18.0); LYMPHOCYTES # (AUTO) 0.7 K/uL (1.0-5.5); LYMPHOCYTES % (AUTO) 9.1 % (20.5-51.5); MEAN CORPUSCULAR HEMOGLOBIN 25 pg (27-31); MEAN CORPUSCULAR HGB CONC 32 % (32-36); MEAN CORPUSCULAR VOLUME 78 fL (79.0-98.0); MONOCYTES # (AUTO) 0.6 K/uL (0.0-1.0); MONOCYTES % (AUTO) 7.2 % (1.7-9.3); NEUTROPHILS # (AUTO) 6.4 K/uL (1.8-7.7); NEUTROPHILS % (AUTO) 80.4 % (40.0-70.0); PLATELET COUNT (AUTO) 275 K/uL (130-430); RED CELL DISTRIBUTION WIDTH 16.9 % (9.0-15.0); WHITE BLOOD COUNT (AUTO) 7.9 K/uL (4.8-10.8)
[2016-10-16] MEDS: HYDROmorphone 2 MG/ML VIAL IVP PRN ×2 (08:41→20:29)
--- NOTE | 2016-10-16 08:41 | NUR ---
Medicated for right leg pain with Dilaudid 2 mg IVP.Colostomy care done emptied 300 cc liquid brownish stool
[2016-10-16 09:12] LABS: CALCIUM 8.1 mg/dL (8.4-11.0); CREATININE 3.19 mg/dL (0.55-1.30); POTASSIUM 3.6 mmol/L (3.5-5.1)
--- NOTE | 2016-10-16 10:00 | NUR ---
Patient resting ,denies pain.
[2016-10-16] MEDS: ARIPiprazole 2 MG TAB PO SCH (11:55)
--- NOTE | 2016-10-16 12:00 | NUR ---
Patient still sleepy from the Dilaudid given.
--- NOTE | 2016-10-16 14:00 | NUR ---
Patient did not eat lunch ,still sleepy but arousable with verbal stimuli.Complete bath and linen change done .
--- NOTE | 2016-10-16 16:00 | NUR ---
Patient awake ,comfortable . On T bar at 4 liters nasal cannula saturating 100%
[2016-10-16] MEDS: SODIUM BICARBONATE 8.4% JECT 100 MEQ in D5W 1,000 ML IV SCH (17:05)
--- NOTE | 2016-10-16 19:53 | NUR ---
Opening Note Patient is in bed currently receiving a breathing treatment. He is sinus rhythm on the monitor. Has a trach size 7 and is receiving O2 6l via a t-bar. Montoya catheter is to gravity draining clear yellow urine. Ileostomy bag is draining liquid stool. Low airloss mattress in place. IV is on the right pinky 22g running [id number]@50ml/hr. 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
[2016-10-16] MEDS: traZODone HCL 50 MG TABLET (DESYREL) PO SCH (20:32)
[2016-10-16] MEDS: ATORVASTATIN 20 MG TABLET PO SCH (20:32)
[2016-10-16] MEDS: MUPIROCIN 2% TOPICAL OINTMENT 22 GM TP SCH ×2 (20:36→21:00)
[2016-10-16] MEDS: cefTRIAXone 1 GM in D5W 50 ML IV SCH (20:36)
--- NOTE | 2016-10-16 22:00 | NUR ---
Rounds Patient is resting in bed. Ileostomy bag drained. Bed is low position. Patient is in stable condition.
[2016-10-17] VITALS: BP 95/48; PULSE 79; RESP 17; TEMP 98.4; O2SAT 98
--- NOTE | 2016-10-17 | NUR ---
Rounds Patient is resting in bed. No signs of distress noted.
[2016-10-17] MEDS: IPRATROPIUM BROM 0.5 MG/2.5 ML VIAL.NEB (ATROVENT) INH SCH ×4 (00:42→20:11)
[2016-10-17] MEDS: ALBUTEROL SULFATE 0.083% 2.5 MG/3 ML VIAL.NEB INH SCH ×4 (00:42→20:11)
--- NOTE | 2016-10-17 02:15 | NUR ---
Rounds Patient was cleaned and ileostomy bag was drained. Condition is stable. Bed is in low position. Seizure pads are in place.
[2016-10-17 04:00] VITALS: BP 115/72; PULSE 101; RESP 17; TEMP 98.6; O2SAT 98
--- NOTE | 2016-10-17 04:15 | NUR ---
Rounds Patient is in stable condition. Currently resting in bed. Bed is in low position.
--- NOTE | 2016-10-17 06:27 | NUR ---
Closing Note Patient is awake and currently resting in bed. Trach was suctioned and ileostomy bag was drained. IV is on the right pinky running [id number] @50ml/hr. Montoya catheter is to gravity draining clear yellow urine. Patient is on O2 4L via t-bar. Contact and seizure precautions are in place. Will give report to the oncoming nurse.
--- NOTE | 2016-10-17 07:25 | NUR ---
AM ROUNDS: AWAKE DURING ROUNDS. RT GIVING BREATHING TREATMENT. REPORT GIVEN AT BEDSIDE. ON CONTACT ISOLATION ,PRECAUTION RENDERED. IVF WITH BICARB AT RIGHT PINKY ON GOING. WITH TRACH ,T-BAR AT 4L/MIN. GOOD SATURATION. WITH MCCAULEY DRAINING TO YELLOW URINE. NO DISTRESS. SR ON THE MONITOR.
[2016-10-17 07:27] LABS: BASOPHILS % (AUTO) 0.3 % (0.0-2.0); EOSINOPHILS # (AUTO) 0.2 K/uL (0.0-0.4); EOSINOPHILS % (AUTO) 2.5 % (0.0-4.0); HEMATOCRIT 35.2 % (36-54); HEMOGLOBIN 11.2 g/dL (14.0-18.0); LYMPHOCYTES # (AUTO) 0.6 K/uL (1.0-5.5); LYMPHOCYTES % (AUTO) 7.2 % (20.5-51.5); MEAN CORPUSCULAR HEMOGLOBIN 25 pg (27-31); MEAN CORPUSCULAR HGB CONC 32 % (32-36); MEAN CORPUSCULAR VOLUME 78 fL (79.0-98.0); MONOCYTES # (AUTO) 0.7 K/uL (0.0-1.0); MONOCYTES % (AUTO) 9.3 % (1.7-9.3); NEUTROPHILS # (AUTO) 6.5 K/uL (1.8-7.7); NEUTROPHILS % (AUTO) 80.7 % (40.0-70.0); PLATELET COUNT (AUTO) 293 K/uL (130-430); RED BLOOD CELL COUNT(AUTO) 4.54 MIL/uL (4.2-6.2); RED CELL DISTRIBUTION WIDTH 16.8 % (9.0-15.0)
[2016-10-17 07:30] LABS: ABG TOTAL HEMOGLOBIN 10.9 G/dL (12.0-18.0); BLOOD GAS COHb% 0.3 % (0.5-1.5); BLOOD GAS HHB 3.1 % (0.0-6.0); BLOOD GAS PH 7.131 (7.350-7.450); BLOOD O2Hb% 96.5 % (94.0-97.0)
--- NOTE | 2016-10-17 07:36 | NUR ---
PAGED DR KAMARA, [facility] [phone]
[2016-10-17 07:55] LABS: CALCIUM 8.3 mg/dL (8.4-11.0); CREATININE 3.42 mg/dL (0.55-1.30); POTASSIUM 3.7 mmol/L (3.5-5.1)
--- NOTE | 2016-10-17 08:03 | NUR ---
CRYSTAL PAGED: SPOKE WITH DR VERGARA AND RELAYED CRITICAL ABG'S ,WITH ORDERS GIVE SODIUM BICARB 2 Amps ivp and another 2 amp after 30mins. increase bicitro 60ml tid. recommend nehro consult per dr vergara,to paged dr al about it.
[2016-10-17] MEDS: HYDROmorphone 2 MG/ML VIAL IVP PRN (08:07)
[2016-10-17 08:11] VITALS: BP 130/71; PULSE 97; RESP 18; TEMP 98
--- NOTE | 2016-10-17 08:15 | NUR ---
pain meds: c/o right lower extremity pain and due iv pain meds given per request.
--- NOTE | 2016-10-17 08:42 | NUR ---
BICARBONATE IV: 2 AMP BICARB IVP GIVEN BY KIMBERLYN HIGGINBOTHAM ORDERED.
[2016-10-17] MEDS: SODIUM BICARBONATE 8.4% JECT 50 MEQ/50 ML SYRINGE IVP SCH ×2 (08:43→10:05)
[2016-10-17] MEDS: BACLOFEN 10 MG TABLET PO SCH ×3 (08:53→21:32)
[2016-10-17] MEDS: GABAPENTIN 300 MG CAPSULE PO SCH ×3 (08:53→21:32)
[2016-10-17] MEDS: FAMOTIDINE 20 MG TABLET PO SCH (08:53)
[2016-10-17] MEDS: levETIRAcetam 500 MG TABLET PO SCH ×2 (08:54→21:32)
[2016-10-17] MEDS: CITRIC ACID/SODIUM CITRATE 30 ML UDC PO SCH ×3 (08:56→21:32)
[2016-10-17] MEDS: ARIPiprazole 2 MG TAB PO SCH (09:13)
[2016-10-17] MEDS: MUPIROCIN 2% TOPICAL OINTMENT 22 GM TP SCH ×2 (09:13→21:46)
--- NOTE | 2016-10-17 09:43 | NUR ---
NEPHROLOGY CONSULT Spoke with Iris regarding request for consultation with Dr. Tijerina ([phone]) for reason: met acidosis. Dr. Arreaga is currently on-call.
--- NOTE | 2016-10-17 10:00 | NUR ---
BICARBONATE IV: ANOTHER 2 AMPS OF BICARBONATE IVP GIVEN BY KIMBERLYN HIGGINBOTHAM ,AFTER 30MINS OF INTERVAL ORDERED.
--- NOTE | 2016-10-17 12:11 | NUR ---
NEPHRO ROUNDS: PATIENT SEEN BY DR ZHANG WITH ORDERS ,INCREASED IVF WITH BICARB AT 100CC/H AND NEXT BAG INCREASED BICARB ORDERED.URINE RANDOM ORDERED.
[2016-10-17 12:21] VITALS: BP 109/64; PULSE 68; RESP 18; TEMP 98.6; O2SAT 96
--- NOTE | 2016-10-17 12:36 | NUR ---
ADD NOTES: FOR URINE SODIUM RANDOM WELL,SAMPLE TO FOLLOW.FOR RENAL ULTRASOUND WELL.
--- NOTE | 2016-10-17 14:15 | NUR ---
ROUNDS: RESTING. NO DISTRESS. TOLERATED TRACH T-BAR @ 4L/MIN,GOOD SATURATION.
[2016-10-17] MEDS: SODIUM BICARBONATE 8.4% JECT 150 MEQ in D5W 1,000 ML IV SCH (15:01)
--- NOTE | 2016-10-17 15:35 | NUR ---
URINE : URINE RANDOM SAMPLE FOR SODIUM AND CREATINE SENT TO LAB BY [facility].
--- NOTE | 2016-10-17 16:10 | NUR ---
ROUNDS: RESTING. NO PROBLEM.
[2016-10-17 16:51] VITALS: BP 112/68; PULSE 70; RESP 17; TEMP 98.4; O2SAT 97
--- NOTE | 2016-10-17 18:37 | NUR ---
CLOSING NOTES: PATIENT ON UPRIGHT POSITION,EATING DINNER. ON TRACH T-BAR 4L/MIN,GOOD SATURATION. WITH MCCAULEY IN SITU. IVF WITH BICARB AT 100CC/H RIGHT HAND INTACT.RIGHT ILEOSTOMY IN PLACED.CONTINUE TO MONITOR.NO DISTRESS.
[2016-10-17 19:45] VITALS: BP 115/62; PULSE 107; RESP 18; TEMP 96.7; O2SAT 97
--- NOTE | 2016-10-17 19:45 | NUR ---
INITIAL NOTES; -Pt awakes, seem lethargic. Asked name and , pt just looks, but won't reply. Vital signs 96.7, 18, 107, 115/62, 97% 2 L n/c oxy. No s/s any pain,sob,n&V, any acute distress noted. Pt has 2 L n/c oxy. IV site rt hand, patent, no s/s any infiltration noted. Abdomen soft & distended, bs present. Vasu pedis wakes upon palp. Vasu pedis pulses edema 2+ pitting edema. Pt has productive thick clear secretion. Contact isolation for MRDRO/AWARD CLERK urine . Suctioning pt and keep HOB greater than 30 degreen. Lung sounds clear vasu anterior and posterior upper lobes, vasu posterior lobes diminished. Discussed poc, all safety measures, pain mgmt with pt, pt seem passive this time. Will discuss poc, when more alerts and awares. No visitor is at bedside. Side rail x3, bed low position. All safety measures in place. Call light /win reach. Continue to monitor pt. Addendum: 10/18/16 at 0412 by Joan Kyle RN ADDITIONAL NOTES; PT HAS A MASK VIA TRACHEA WITH 2L N/C OXY.
[2016-10-17] MEDS: cefTRIAXone 1 GM in D5W 50 ML IV SCH (21:31)
[2016-10-17] MEDS: ATORVASTATIN 20 MG TABLET PO SCH (21:32)
[2016-10-17] MEDS: traZODone HCL 50 MG TABLET (DESYREL) PO SCH (21:32)
--- NOTE | 2016-10-17 21:53 | NUR ---
US POCKETED SPRING MACHINE OPERATOR IS AT BEDSIDE. PERFORMING US RENAL
--- NOTE | 2016-10-17 22:20 | NUR ---
ROUNDS; US PROGRAM ADMIN IS STILL PERFORMING AT BEDSIDE, PT TOLERATES WELL. -Pt is resting in bed. No s/s any pain,sob,or any acute distress noted. No s/s any pain,sob,n&V, any acute distress noted. Pt has 2 L n/c oxy. IV site rt hand, patent, no s/s any infiltration noted. Side rail x3, bed low position. All safety measures in place. Call light /win reach. Continue to monitor pt.
[2016-10-18] VITALS (7 sets, daily range): BP systolic 101–122; BP diastolic 59–69; PULSE 60–97; RESP 15–20; TEMP 97.3–98.7; O2SAT 93–98
--- NOTE | 2016-10-18 00:02 | NUR ---
ROUNDS; SUCTIONING PT WITH THICK YELLOW SECRETION Pt is resting in bed. No s/s any pain,sob,n&V, any acute distress noted. Pt has 2 L n/c oxy via T-bar. IV site rt hand, patent, no s/s any infiltration noted. Side rail x3, bed low position. All safety measures in place. Call light /win reach. Continue to monitor pt. Addendum: 10/18/16 at 0413 by Joan Kyle RN CORRECTION-PT HAS A MASK VIA TRACHEA WITH 2L OXY.
--- NOTE | 2016-10-18 01:48 | NUR ---
ROUNDS; -Pt is resting in bed. No s/s any pain,sob,n&V, any acute distress noted. Pt has 2 L n/c oxy via T-bar. IV site rt hand, patent, no s/s any infiltration noted. Side rail x3, bed low position. All safety measures in place. Call light /win reach. Continue to monitor p Addendum: 10/18/16 at 0414 by Joan Kyle RN CORRECTION; PT HAS A MASK VIA TRACHEA WITH 2 L OXY.
[2016-10-18] MEDS: SODIUM BICARBONATE 8.4% JECT 150 MEQ in D5W 1,000 ML IV SCH (02:08)
[2016-10-18] MEDS: HYDROmorphone 2 MG/ML VIAL IVP PRN ×2 (02:24→09:24)
--- NOTE | 2016-10-18 02:25 | NUR ---
PAIN MEDICATION/ EMPTIED COLOSTOMY BAG -REMOVED 450ML DARK CHUNKY GREEN LOOSE STOOL. ALSO, SUCTIONING PT WITH THICK YELLOW SECRETION. KEEP HOB GREATER THAN 30 DEGREE ENTIRE TIME. -Pt is c/o pain generalized, gave Dilaudid 2mg IVP. See EMAR for pain reassessment. Pt has 2 L n/c oxy via T-bar. IV site rt hand, patent, no s/s any infiltration noted. Side rail x3, bed low position. All safety measures in place. Call light /win reach. Continue to monitor p
--- NOTE | 2016-10-18 03:30 | NUR ---
CHANGED FROM MASK VIA TRACHEA TO T-BAR WITH 4 L N/C OXY. -[id number]=85%
--- NOTE | 2016-10-18 03:30 | NUR ---
ROUNDS; -RESP THERAPIST CHANGED FROM A MASK VIA TRACHEA TO T-BAR VIA TRACHEA WITH 4 L OXY. SUCTIONED PT. NO S/S ANY PAIN,SOB,OR ANY ACUTE DISTRESS NOTED. ALL SAFETY MEASURES IN PLACE. CALL LIGHT W/IN REACH. CONTINUE TO MONITOR PT.
[2016-10-18] MEDS: IPRATROPIUM BROM 0.5 MG/2.5 ML VIAL.NEB (ATROVENT) INH SCH ×4 (03:59→19:50)
[2016-10-18] MEDS: ALBUTEROL SULFATE 0.083% 2.5 MG/3 ML VIAL.NEB INH SCH ×4 (03:59→19:50)
--- NOTE | 2016-10-18 06:01 | NUR ---
ROUNDS; -Pt is resting in bed. No s/s any pain,sob,n&V, any acute distress noted. Pt has 4 L n/c oxy via T-bar. IV site rt hand, patent, no s/s any infiltration noted. Side rail x3, bed low position. All safety measures in place. Call light /win reach. Continue to monitor p
--- NOTE | 2016-10-18 06:38 | NUR ---
CLOSING NOTES; -Pt is resting in bed. No s/s any pain,sob,n&V, any acute distress noted. Pt has 4L oxy via T-Bar. IV site rt hand, patent, no s/s any infiltration noted. Colostomy in place drains chunky loose stool output. Pt has productive thick clear secretion. Contact isolation for MRDRO/OIL PIPELINE DISPATCHER urine . Suctioning pt and keep HOB greater than 30 degreen. Side rail x3, bed low position. All safety measures in place. Call light /win reach. Will endorse to oncoming nurse to continue care.
[2016-10-18 07:27] LABS: CALCIUM 7.7 mg/dL (8.4-11.0); CREATININE 2.82 mg/dL (0.55-1.30); POTASSIUM 2.7 mmol/L (3.5-5.1)
[2016-10-18 07:46] LABS: BASOPHILS % (AUTO) 0.6 % (0.0-2.0); EOSINOPHILS # (AUTO) 0.2 K/uL (0.0-0.4); EOSINOPHILS % (AUTO) 3.1 % (0.0-4.0); HEMATOCRIT 28.6 % (36-54); HEMOGLOBIN 9.4 g/dL (14.0-18.0); LYMPHOCYTES % (AUTO) 16.8 % (20.5-51.5); MEAN CORPUSCULAR HEMOGLOBIN 25 pg (27-31); MEAN CORPUSCULAR HGB CONC 33 % (32-36); MEAN CORPUSCULAR VOLUME 77 fL (79.0-98.0); MONOCYTES # (AUTO) 0.7 K/uL (0.0-1.0); MONOCYTES % (AUTO) 12.1 % (1.7-9.3); NEUTROPHILS # (AUTO) 3.8 K/uL (1.8-7.7); NEUTROPHILS % (AUTO) 67.4 % (40.0-70.0); PLATELET COUNT (AUTO) 248 K/uL (130-430); RED BLOOD CELL COUNT(AUTO) 3.74 MIL/uL (4.2-6.2); RED CELL DISTRIBUTION WIDTH 16.6 % (9.0-15.0); WHITE BLOOD COUNT (AUTO) 5.7 K/uL (4.8-10.8)
--- NOTE | 2016-10-18 08:10 | NUR ---
INITIAL ROUNDS Received pt AAOx2, no s/s resp distress, c/o pain-pointing to his right leg-will check on pain medication. Pt on contact isolation precautions. Pt on air mattress-will reposition pt Q 2hrs/PRN with pillow support and heels off-loaded for skin care and comfort. IVF infusing well to right hand at ordered rate with no s/s infiltration to site. Montoya draining to gravity with cloudy, yellow urine. Noted colostomy to right abd with small amount of loose, brown stool. Plan of care reviewed with pt-pt just stared at this advertising copy writer-will continue to reinforce all teachings. Side rails up x3, bed alarm on, Call light within reach.
[2016-10-18] MEDS ORDERED: ZOLPIDEM TARTRATE 5 MG TABLET PO PRN (09:00)
[2016-10-18] MEDS ORDERED: DOCUSATE SODIUM 100 MG CAPSULE PO PRN (09:00)
[2016-10-18] MEDS ORDERED: ONDANSETRON HCL 4 MG/2 ML VIAL IVP PRN (09:00)
[2016-10-18] MEDS ORDERED: MORPHINE 2 MG/ML INJ. SYRINGE IVP PRN (09:00)
[2016-10-18] MEDS ORDERED: LORazepam 2 MG/ML VIAL IVP PRN (09:00)
[2016-10-18] MEDS ORDERED: POTASSIUM CHLORIDE 40 MEQ, LIDOCAINE JECT 2% PF 100 MG 50 MG in NS 250 ML IV ONE (09:00)
[2016-10-18] MEDS ORDERED: ACETAMINOPHEN 325 MG TABLET PO PRN (09:00)
[2016-10-18] MEDS ORDERED: MAGNESIUM SULFATE 50 ML IV PRN (09:00)
[2016-10-18] MEDS ORDERED: POTASSIUM CHLORIDE 10 MEQ TAB.PRT.SR PO PRN (09:00)
[2016-10-18] MEDS: levETIRAcetam 500 MG TABLET PO SCH ×2 (09:20→20:46)
[2016-10-18] MEDS: BACLOFEN 10 MG TABLET PO SCH ×3 (09:20→20:46)
[2016-10-18] MEDS: CITRIC ACID/SODIUM CITRATE 30 ML UDC PO SCH ×3 (09:21→20:46)
[2016-10-18] MEDS: FAMOTIDINE 20 MG TABLET PO SCH (09:21)
[2016-10-18] MEDS: GABAPENTIN 300 MG CAPSULE PO SCH ×3 (09:21→20:46)
[2016-10-18] MEDS: HEPARIN SODIUM,PORCINE 5000 UNITS/ML VIAL SUBCUT SCH ×2 (09:29→20:50)
--- NOTE | 2016-10-18 10:05 | NUR ---
ROUNDS Pt resting quietly with no s/s resp distress, no s/s pain or discomfort. Pt given milk per request. Call light within reach.
[2016-10-18] MEDS: ARIPiprazole 2 MG TAB PO SCH (10:18)
[2016-10-18] MEDS: MUPIROCIN 2% TOPICAL OINTMENT 22 GM TP SCH ×2 (10:19→20:55)
--- NOTE | 2016-10-18 12:01 | NUR ---
ROUNDS Pt sitting up in bed with no s/s resp distress, no c/o pain or discomfort. K-Reji still infusing well at ordered rate. No changes, call light within reach.
[2016-10-18] MEDS: 0.45% NACL 1,000 ML IV SCH ×2 (12:57→21:05)
--- NOTE | 2016-10-18 14:05 | NUR ---
ROUNDS Pt resting quietly with no s/s resp distress, no s/s pain or discomfort. No changes. Call light within reach.
--- NOTE | 2016-10-18 16:00 | NUR ---
ROUNDS Pt sitting up in bed with no s/s resp distress, pt suctioned via trach per pt request. No c/o pain or discomfort. Pt given fresh water and assisted with drinking it. Needs met, call light within reach.
--- NOTE | 2016-10-18 18:35 | NUR ---
CLOSING NOTE Pt resting quietly in bed with no s/s resp distress, no c/o pain or discomfort. Contact isolation precautions maintained throughout shift. IVF infusing well to right hand at ordered rate with no s/s infiltration to site. Colostomy emptied-250 ml, some small chunks noted. Aspiration, skin and safety precautions remain in place. Needs met, call light within reach.
--- NOTE | 2016-10-18 19:15 | NUR ---
change of shift.pt.initial assessment.pt.presents isolation:contact:mrsa nares.trach:unfenestrated.#7mm. colostomy:rlq/abdomen.olson catheter.iv access rt.hand.w/iv fluids.paraplegia:no c/o pain,nausea.pt.capable to articulate convey needs:trach;talking:mouth words.call light w/in pt's reach.
--- NOTE | 2016-10-18 20:00 | NUR ---
pt.assessed.pt.presents stable status.no c/o pain.iv lines/tubes changed / policy.colostomy assessed;functional. olson catheter functional.call light place w/in pt's reach. Addendum: 10/19/16 at 0836 by Adams Goodwin RN pt.suctioned.
--- NOTE | 2016-10-18 20:00 | NUR ---
Rounds Received patient lying in bed resting quietly, no s/s of any pain, no acute distress noted. IV site checked intact and patent, IV fluid infusing well. call light within reach.
[2016-10-18] MEDS: traZODone HCL 50 MG TABLET (DESYREL) PO SCH (20:46)
[2016-10-18] MEDS: ATORVASTATIN 20 MG TABLET PO SCH (20:46)
--- NOTE | 2016-10-18 21:00 | NUR ---
2100p medication:rocephin;abx,ivpb administered.iv fluids maintanance dose infusing.call light placed w/in pt's reach.
[2016-10-18] MEDS: cefTRIAXone 1 GM in D5W 50 ML IV SCH (21:07)
--- NOTE | 2016-10-18 22:00 | NUR ---
Rounds Patient resting no s/s of any pain, no acute distress noted. Repositioned patient to side with pillow support. Colostomy bag changed, large, loose bowel movement noted. call light within reach.
--- NOTE | 2016-10-18 22:00 | NUR ---
pt.assessed.pt.suctioned.pt.presents quiescent affect;calm,asleep.call ligth placed w/in pt's reach.
--- NOTE | 2016-10-19 | NUR ---
pt.assessed.pt.suctioned.pt.presents quiescent affect;calm,asleep.call light placed w/in pt's reach.
--- NOTE | 2016-10-19 00:10 | NUR ---
Rounds Patient resting quietly, reposition to side with pillow support. call light within reach.
[2016-10-19] MEDS: HYDROmorphone 2 MG/ML VIAL IVP PRN ×2 (00:37→09:59)
[2016-10-19] MEDS: 0.45% NACL 1,000 ML IV SCH (00:40)
--- NOTE | 2016-10-19 00:45 | NUR ---
pt.requested pain medication.i have administered dilaudid;2mg ivp.2 f/u re:pain efficacy / pain med protocol. call light w/in pt's reach.
[2016-10-19 01:12] VITALS: BP 125/49; PULSE 85; RESP 20; TEMP 97.8; O2SAT 96
[2016-10-19] MEDS: IPRATROPIUM BROM 0.5 MG/2.5 ML VIAL.NEB (ATROVENT) INH SCH ×2 (01:17→11:53)
[2016-10-19] MEDS: ALBUTEROL SULFATE 0.083% 2.5 MG/3 ML VIAL.NEB INH SCH ×2 (01:17→11:53)
--- NOTE | 2016-10-19 02:00 | NUR ---
pt.assessed.pt.suctioned.pt.presents quiescent affect;calm,asleep.call ligth placed w/in pt's reach.
--- NOTE | 2016-10-19 02:00 | NUR ---
Rounds Patient resting quietly, pain medication given earlier with effective result noted. repositioned to side with pillow support. call light within reach.
[2016-10-19 03:40] VITALS: BP 140/46; PULSE 87; RESP 20; TEMP 97.8; O2SAT 94
--- NOTE | 2016-10-19 04:00 | NUR ---
pt.assessed.pt.suctioned.pt.presents quiescent affect;calm,asleep.call light placed w/in pt's reach.
--- NOTE | 2016-10-19 04:10 | NUR ---
Rounds Patient resting quietly. call light within reach.
--- NOTE | 2016-10-19 06:00 | NUR ---
pt.assessed.pt.suctioned.iv fluids infusing.colostomy assessed;functional.olson catheter patent. no c/io pain,nausea.call light placed w/in pt's reach.
--- NOTE | 2016-10-19 06:38 | NUR ---
Closing notes Patient slept most of the night, no other changes noted on patient current condition.
[2016-10-19 07:37] LABS: BASOPHILS % (AUTO) 0.5 % (0.0-2.0); EOSINOPHILS # (AUTO) 0.2 K/uL (0.0-0.4); EOSINOPHILS % (AUTO) 4.6 % (0.0-4.0); HEMATOCRIT 28.2 % (36-54); LYMPHOCYTES % (AUTO) 19.6 % (20.5-51.5); MEAN CORPUSCULAR HEMOGLOBIN 25 pg (27-31); MEAN CORPUSCULAR HGB CONC 32 % (32-36); MEAN CORPUSCULAR VOLUME 77 fL (79.0-98.0); MONOCYTES # (AUTO) 0.6 K/uL (0.0-1.0); MONOCYTES % (AUTO) 12.2 % (1.7-9.3); NEUTROPHILS # (AUTO) 3.4 K/uL (1.8-7.7); NEUTROPHILS % (AUTO) 63.1 % (40.0-70.0); PLATELET COUNT (AUTO) 222 K/uL (130-430); RED BLOOD CELL COUNT(AUTO) 3.64 MIL/uL (4.2-6.2); RED CELL DISTRIBUTION WIDTH 16.5 % (9.0-15.0); WHITE BLOOD COUNT (AUTO) 5.2 K/uL (4.8-10.8)
--- NOTE | 2016-10-19 08:00 | NUR ---
INITIAL NOTE PT SITTING UP IN BED, AWAKE, NONVERBAL, VSS, NO S/S OF DISTRESS, BREATHING EVEN/ UNLABORED, COMPLAINT OF PAIN GENERALIZED 02/18, WILL FOLLOW UP WITH PAIN MEDICATION, PT HAS TRACH WITH TBAR O2 AT 4LITERS, IV TO LEFT HAND SITE PATENT AND INTACT, INFUSING APPROPRIATE FLUIDS AT ORDERED RATE, NO S/S OF INFILTRATION NOTED, MCCAULEY CATHETER INTACT AND DRAINING ZOE URINE TO GRAVITY, PT IN ISOLATION FOR MRSA OF THE NARES, MDRO/SOFTWARE CONFIGURATION MANAGER OF THE URINE, PT REORIENTED TO USE OF CALL LIGHT AND IT IS PLACED WITHIN REACH, SAFETY AND ASPIRATION PRECAUTIONS IN PLACE, BED IN LOW POSITION AND LOCKED, WILL CONTINUE TO MONITOR
[2016-10-19 08:02] VITALS: BP 113/69; PULSE 97; RESP 18; TEMP 97.4; O2SAT 96
[2016-10-19 08:12] LABS: BLOOD GAS PH 7.383 (7.350-7.450)
[2016-10-19 08:13] LABS: BLOOD GAS BASE EXCESS 2.8 mmol/L (-3.0-3.0); BLOOD GAS COHb% 0.3 % (0.5-1.5); BLOOD GAS HHB 2.5 % (0.0-6.0); BLOOD O2Hb% 96.9 % (94.0-97.0)
[2016-10-19 08:25] LABS: CREATININE 2.43 mg/dL (0.55-1.30); POTASSIUM 3.1 mmol/L (3.5-5.1)
[2016-10-19 08:32] LABS: IRON (SERUM) 22 mcg/dL (59-158); TOTAL IRON BIND. CAPACITY 211 ug/dL (250-450)
[2016-10-19] MEDS: CITRIC ACID/SODIUM CITRATE 30 ML UDC PO SCH (09:00)
[2016-10-19] MEDS: BACLOFEN 10 MG TABLET PO SCH ×2 (09:48→14:19)
[2016-10-19] MEDS: GABAPENTIN 300 MG CAPSULE PO SCH ×2 (09:48→14:19)
[2016-10-19] MEDS: FAMOTIDINE 20 MG TABLET PO SCH (09:48)
[2016-10-19] MEDS: levETIRAcetam 500 MG TABLET PO SCH (09:48)
[2016-10-19] MEDS: MUPIROCIN 2% TOPICAL OINTMENT 22 GM TP SCH (09:49)
[2016-10-19] MEDS: ARIPiprazole 2 MG TAB PO SCH (09:49)
[2016-10-19] MEDS: HEPARIN SODIUM,PORCINE 5000 UNITS/ML VIAL SUBCUT SCH (09:54)
[2016-10-19] MEDS ORDERED: POTASSIUM CHLORIDE 40 MEQ, LIDOCAINE JECT 2% PF 100 MG 50 MG in NS 250 ML IV ONE (10:15)
--- NOTE | 2016-10-19 10:15 | NUR ---
DR CORADO AT BEDSIDE, ASSESSED PT, PT AWAKE, ALERT, REFUSING TO RESPOND TO QUESTIONS AT THIS TIME,M SAFETY MEASURES IN PLACE, CALL LIGHT WITHIN REACH, WILL FOLLOW UP
--- NOTE | 2016-10-19 11:45 | NUR ---
PT REPOSITIONED AND SET UP FOR PENDING MEAL, PT RESTING, EASY TO RESPOND, NO S/S OF DISTRESS OR COMPLAINT OF PAIN AT THIS TIME, SAFETY MEASURES IN PLACE, WILL FOLLOW UP
[2016-10-19 12:05] VITALS: BP 110/62; PULSE 82; RESP 17; TEMP 97.6; O2SAT 97
--- NOTE | 2016-10-19 12:27 | NUR ---
DISCHARGE PLANNING DC order back to SNF. Faxed SNF referral to [phone] [phone]. Will follow up. Addendum: 10/19/16 at 1325 by Alexsandra Rodríguez DP Spoke with [place] in admitting patient assigned to room [facility] RN to report [phone] bed available anytime. Called patient brother Reymundo Nixon [phone] recording stated no one available to accept call at this time call gets disconnected. Called again, same recording. Called [facility] [phone] spoke with Sumit who will return call if ambulance transport can be arranged at 5pm. Addendum: 10/19/16 at 1446 by Alexsandra Rodríugez DP Spoke with Johan at [facility] [phone] arranged BLS ([facility]) transport knot picker cloth 5pm. Placed transportation packet in nurses station.
--- NOTE | 2016-10-19 13:30 | NUR ---
CALLED [facility]A ELE[facility] CURRIE TO NOTIFY OF PENDING DISCHARGE OF PATIENT BACK TO SNF, MESSAGE STATES THE NUMBER IS NOT ACCEPTING CALLS AT THIS TIME, AND IS NOT ACCEPTING VOICE MAILS, WILL FOLLOW UP. PT AWARE OF PENDING DISCHARGE AND AGREES, WILL CONTINUE TO ATTEMPT TO CALL FAMILY MEMBER.
--- NOTE | 2016-10-19 14:50 | NUR ---
CALLED BROTHER [facility] ELE[facility] CUR[facility], MESSAGE STATES NUMBER IS NOT ACCEPTING CALLS AT THIS TIME AND AM UNABLE TO LEAVE MESSAGE, WILL FOLLOW UP.
[2016-10-19 15:47] VITALS: BP 110/62; PULSE 82; RESP 17; TEMP 97.6; O2SAT 97
[2016-10-19 16:03] VITALS: BP 111/62; PULSE 89; RESP 18; TEMP 98.1; O2SAT 97
[2016-10-19 16:28] LABS: CALCIUM 7.9 mg/dL (8.4-11.0); CREATININE 2.37 mg/dL (0.55-1.30)
--- NOTE | 2016-10-19 16:40 | NUR ---
EXIT CARE PROVIDED, TRANSITIONAL PAPERWORK REVIEWED, PT UNABLE TO SIGN PAPERWORK, PT NODES HEAD TO STATE UNDERSTANDING, PT READY FOR JANITORIAL CLEANER, AWAITING TRANSPORTATION .
--- NOTE | 2016-10-19 17:04 | NUR ---
CALLED [facility] TO GIVE REPORT TO RECEIVING RN, GAVE REPORT TO DOLLY JOHNSON PROVIDED WITH CALL BACK NUMBER INCASE OF AN QUESTIONS, AND ESTIMATED MOLD FORMS BUILDER TIME IS 1700, AWAITING TRANSPORT.
--- NOTE | 2016-10-19 17:37 | NUR ---
CALLED BROTHER ROSA ELENA ROSEY AT [phone], TO NOTIFY OF DISCHARGE, RECEIVED MESSAGE THAT NUMER IS NOT ACCEPTING CALLS AT THIS TIME AND CANNOT LEAVE VOICE MAIL, WILL FOLLOW UP
--- NOTE | 2016-10-19 18:30 | NUR ---
MEAL TRAY SET UP, PATIENT IS A FEEDER, ASSISTED WITH DINNER, TOLERATED WELL. PT SITTING IN SEMI FOWLERS, UPDATED ON STATUS OF DISCHARGE, WE ARE WAITING FOR TRANSPORTATION TO ARRIVE, PT AWARE AND WAITING, SAFETY MEASURES IN PLACE, CALL LIGHT WITHIN REACH, WILL CONTINUE TO MONITOR
--- NOTE | 2016-10-19 18:51 | NUR ---
CALL [facility] TO FOLLOW UP ON CORPORATE INTERN, ESTIMATED TIME 1700, RUBY ENGINEER STATED THE AMBULANCE SHOULD BE OUTSIDE IN PARKING LOT, ENTERING HOSPITAL ANY MINUTE NOW. AWAITING PICKUP.
--- NOTE | 2016-10-19 19:30 | NUR ---
PT TRANSFERRED Report given to alexis at [facility]. Transfer packet with Transfer Orders and Medication Reconciliation form given to EMT with report. Exitcare provided. [facility] ID band removed, replaced with ID band with pt's name and . IV catheter removed, intact and dressing applied, no active bleeding. All belongings sent with patient. Patient left floor via gurney escorted by EMT-gentle ride in no distress.
== END 2016-10-19 19:30 | DRG 871 ==
LOC: SED 18:23 → STU 20:46
PROVIDERS: ADMIT General Practice; ATTEND General Practice
DX: A41.9 Sepsis, unspecified organism (principal); J96.20 Acute and chronic respiratory failure, unspecified whether with hypoxia or hypercapnia; N17.0 Acute kidney failure with tubular necrosis; E87.2 Acidosis; G82.20 Paraplegia, unspecified; N39.0 Urinary tract infection, site not specified; Z99.11 Dependence on respirator [ventilator] status; E44.0 Moderate protein-calorie malnutrition; E66.9 Obesity, unspecified; G40.909 Epilepsy, unspecified, not intractable, without status epilepticus; G89.29 Other chronic pain; D63.8 Anemia in other chronic diseases classified elsewhere; N18.3 Chronic kidney disease, stage 3 (moderate); E87.6 Hypokalemia; E78.5 Hyperlipidemia, unspecified; Z93.0 Tracheostomy status; Z87.891 Personal history of nicotine dependence; Z68.37 Body mass index [BMI] 37.0-37.9, adult; Z93.2 Ileostomy status; Z88.0 Allergy status to penicillin; Z88.8 Allergy status to other drugs, medicaments and biological substances; Z79.899 Other long term (current) drug therapy; Z98.49 Cataract extraction status, unspecified eye
CPT/HCPCS: 36415; 36600; 71010; 76770; 80048; 80053; 81000-TC; 82570-TC; 82803-TC; 83540-TC; 83550-TC; 83605; 83735-TC; 84302-TC; 84484; 85025; 85610-TC; 85730-TC; 87040-TC; 87081; 87086; 93005; 94640; 94760; 96374; 96375; 99285; J0696; J1170; J1200; J1644; J2270; J3480; J7030; J7040; J7050; J7060

== ENCOUNTER 2016-12-16 17:20 | Inpatient (IN) | payer OTHER ==
[~2016-12-16] VITALS: Ht 180.3 cm; Wt 117.0 kg
[2016-12-16 17:20] VITALS: BP_SYST 133
[~2016-12-16 17:20] MED LIST changes: +ALBU2.5V7 INH; +BACL10TA PO; +GUAI600T86 PO; +HYDR-1189 PO; +IPRA0.2S6 INH; +LEVE500T13 PO; -MIDO10TA PO; +SIME80TA PO
--- NOTE | 2016-12-16 17:20 | NUR ---
Patient to ER bed 6 to gown for evaluation. Side rails up. Report given to DOLLY MURRAY.
--- NOTE | 2016-12-16 17:26 | NUR ---
ER at bedside examining patient.
--- NOTE | 2016-12-16 17:49 | NUR ---
[facility] by Dr Ness per written order. Pt complains of right leg pain 02/18. No injury noted to right leg. No other injuries/complaints per pt or noted.
[2016-12-16] MEDS ORDERED: ASCO500T20 PO (17:50)
[2016-12-16] MEDS ORDERED: SODI650T PO (17:50)
[2016-12-16] MEDS ORDERED: SER100 PO (17:50)
[2016-12-16] MEDS ORDERED: HEPA500014 SUBCUT (17:50)
[2016-12-16] MEDS ORDERED: DIVA500T4 PO (17:50)
[2016-12-16] MEDS ORDERED: DOCU-144 PO (17:50)
[2016-12-16] MEDS ORDERED: ACET-2165 PO (17:50)
[2016-12-16] MEDS ORDERED: QUET200T5 PO (17:50)
--- NOTE | 2016-12-16 17:51 | NUR ---
Medication reconciliation completed with information provided by ROBBY PANDA. Any prior medication reconciliation on file was reviewed and corrected.
[2016-12-16 18:26] LABS: BASOPHILS % (AUTO) 0.6 % (0.0-2.0); EOSINOPHILS # (AUTO) 0.2 K/uL (0.0-0.4); EOSINOPHILS % (AUTO) 2.8 % (0.0-4.0); HEMOGLOBIN 12.5 g/dL (14.0-18.0); LYMPHOCYTES # (AUTO) 1.2 K/uL (1.0-5.5); LYMPHOCYTES % (AUTO) 14.9 % (20.5-51.5); MEAN CORPUSCULAR HEMOGLOBIN 25 pg (27-31); MEAN CORPUSCULAR HGB CONC 31 % (32-36); MEAN CORPUSCULAR VOLUME 79 fL (79.0-98.0); MONOCYTES # (AUTO) 0.8 K/uL (0.0-1.0); MONOCYTES % (AUTO) 9.7 % (1.7-9.3); NEUTROPHILS # (AUTO) 5.5 K/uL (1.8-7.7); PLATELET COUNT (AUTO) 284 K/uL (130-430); RED BLOOD CELL COUNT(AUTO) 5.06 MIL/uL (4.2-6.2); RED CELL DISTRIBUTION WIDTH 17.9 % (9.0-15.0); WHITE BLOOD COUNT (AUTO) 7.7 K/uL (4.8-10.8)
--- NOTE | 2016-12-16 18:30 | NUR ---
Pt complains of pain and Dr Cobb was made aware and pain medications were given.
[2016-12-16 18:35] LABS: CALCIUM 8.6 mg/dL (8.4-11.0); CREATININE 2.45 mg/dL (0.55-1.30); POTASSIUM 4.8 mmol/L (3.5-5.1)
[2016-12-16 18:40] LABS: ALBUMIN 3.1 g/dL (3.4-4.8); TOTAL BILIRUBIN 0.2 mg/dL (0.0-1.0); TOTAL PROTEIN, SERUM 8.1 g/dL (6.4-8.3)
[2016-12-16] MEDS ORDERED: fentaNYL CITRATE/PF 100 MCG/2 ML AMP IVP ONE (18:45)
[2016-12-16] MEDS ORDERED: PROMETHAZINE HCL 25 MG/ML AMP IVP ONE (18:45)
--- NOTE | 2016-12-16 19:20 | NUR ---
Spoke to Dr. Ness, new order, to admit to [facility] for [facility] and stated he will put the rest of his orders in.
--- NOTE | 2016-12-16 19:49 | NUR ---
# 16 FR Olson catheter with use of sterile technique. Immediate return of 50 cc urine noted. Bedside drainage bag placed below level of bladder. Urine sample collected and sent to lab. Pt tolerated procedure well. Patient arrived with olson in place, changed due to standard of practice prior to admission. Patient unable to toilet self.
--- NOTE | 2016-12-16 20:09 | NUR ---
ADMIT NOTE Received pt from ER to the floor with a diagnosis of acute renal failure. Admission process initiated. patient oriented to pain management, safety and call light-teach back done.
--- NOTE | 2016-12-16 20:10 | NUR ---
Pt. being transfered to [facility] as per MD order, stable for transfer at this time
[2016-12-16] MEDS ORDERED: LORazepam 2 MG/ML VIAL IVP PRN (20:15)
[2016-12-16] MEDS ORDERED: POTASSIUM CHLORIDE 10 MEQ TAB.PRT.SR PO PRN (20:15)
[2016-12-16] MEDS ORDERED: ALBUTEROL SULFATE 0.083% 2.5 MG/3 ML VIAL.NEB INH PRN (20:15)
[2016-12-16] MEDS ORDERED: ACETAMINOPHEN 325 MG TABLET PO PRN (20:15)
[2016-12-16] MEDS ORDERED: ZOLPIDEM TARTRATE 5 MG TABLET PO PRN (20:15)
[2016-12-16] MEDS ORDERED: DOCUSATE SODIUM 100 MG CAPSULE PO PRN (20:15)
[2016-12-16] MEDS ORDERED: MORPHINE 2 MG/ML INJ. SYRINGE IVP PRN (20:15)
[2016-12-16] MEDS ORDERED: ONDANSETRON HCL 4 MG/2 ML VIAL IVP PRN (20:15)
[2016-12-16] MEDS ORDERED: MAGNESIUM SULFATE 50 ML IV PRN (20:15)
[2016-12-16] MEDS ORDERED: DOCUSATE SODIUM 100 MG CAPSULE PO SCH (20:15)
--- NOTE | 2016-12-16 20:15 | NUR ---
Bedside report given to receiving RN
--- NOTE | 2016-12-16 20:26 | NUR ---
CONSULTATION PAGED REASON FOR CONSULTATION:RENAL FAILURE WAS CONSULT CALLED?Y PERSON WHO WAS NOTIFIED:KEVIN CONSULTING PHYSICIAN:LUZMA MOISE NITIN ANSWERING SERVICE OPERATOR ELEMENTARY ASSISTANT PRINCIPAL SPECIALTY:NEPHROLOGY ELEMENTARY ASSISTANT PRINCIPAL PHONE NUMBER:[phone]
[2016-12-16] MEDS ORDERED: NACL 0.9% 1,000 ML IV SCH (20:30)
--- NOTE | 2016-12-16 20:30 | NUR ---
INITIAL ADMISSION NOTE Patient resting on the bed. Respiration even and unlabored. No acute distress. Trach intact, breath in RA. Denied of pain. Skin warm and dry to touch. Colostomy intact to right with brown stool. F/c intact, drain gravity with yellow urine. IV intact to right hand, no redness, no swelling. Discussed the safety issue, use call light when need help, and plan of care, verbally understanding. Safety measure maintained. Call light within reached. Bed in low position, side rails up, bed alarm on. Will continue to monitor.
--- NOTE | 2016-12-16 20:33 | NUR ---
CONSULTATION PAGED REASON FOR CONSULTATION:ACUTE PSYCHOSIS WAS CONSULT CALLED?Y PERSON WHO WAS NOTIFIED:KEVIN CONSULTING PHYSICIAN:,SAID CUBING MACHINE TENDER SPECIALTY:PSYCH CUBING MACHINE TENDER PHONE NUMBER:[phone]
[2016-12-16 20:37] VITALS: BP_SYST 99
[2016-12-16 21:24] LABS: ABG TOTAL HEMOGLOBIN 12.6 G/dL (12.0-18.0); BLOOD O2Hb% 94.3 % (94.0-97.0)
[2016-12-16 21:25] LABS: BLOOD GAS COHb% 0.5 % (0.5-1.5)
[2016-12-16 21:31] VITALS: BP_SYST 103
--- NOTE | 2016-12-16 21:39 | NUR ---
PAGED PAGED [facility] AT [phone] LEFT A VOICEMAIL.
--- NOTE | 2016-12-16 21:54 | NUR ---
REPORTED ABG RESULT TO DR. SHAH, [facility] Reported ABG result and informed Dr. Shah patient with episode of O2 sat 88-90% shown in the monitor, MD with order O2 2L/min via trach mask PRN when O2 sat less than 90%. Also informed MD patient tolerated liquid, then able to take sandwich without problem. Per patient, he used to have regular diet. MD with order for regular diet. Orders read back and okay to .
--- NOTE | 2016-12-16 22:00 | NUR ---
COLOSTOMY BAG CHANGED Colostomy leakage on the side, bag changed. Stoma red and moist, no s/s of infection noted at this time.
[2016-12-16] MEDS: HEPARIN SODIUM,PORCINE 5000 UNITS/ML VIAL SUBCUT SCH (22:23)
[2016-12-16] MEDS: GABAPENTIN 300 MG CAPSULE PO SCH (22:23)
[2016-12-16] MEDS: traZODone HCL 50 MG TABLET (DESYREL) PO SCH (22:24)
[2016-12-16] MEDS: levETIRAcetam 500 MG TABLET PO SCH (22:24)
[2016-12-16] MEDS: ATORVASTATIN 20 MG TABLET PO SCH (22:24)
[2016-12-16] MEDS: BACLOFEN 10 MG TABLET PO SCH (22:24)
[2016-12-16] MEDS: DIVALPROEX SODIUM 500 MG TAB.SR.24H (DEPAKOTE ER) PO SCH (22:24)
[2016-12-17] VITALS (7 sets, daily range): BP systolic 104–125
--- NOTE | 2016-12-17 00:10 | NUR ---
ROUND Patient resting on the bed with eyes closed. Respiration even and unlabored. No acute distress. Trach intact to room air. Safety measure maintained. Bed in low position, side rails up, bed alarm on. Call light within reached. Will continue to monitor.
[2016-12-17] MEDS: IPRATROPIUM BROM 0.5 MG/2.5 ML VIAL.NEB (ATROVENT) INH SCH ×5 (00:21→20:51)
--- NOTE | 2016-12-17 01:35 | NUR ---
URINE COLLECTED AND SENT TO LAB
[2016-12-17 01:55] LABS: BILIRUBIN,URINE NEGATIVE (NEGATIVE); BLOOD, URINE 3+ (NEGATIVE); CLARITY/URINE CLOUDY (CLEAR); COLOR,URINE YELLOW (YELLOW); GLUCOSE,URINE NEGATIVE (NEGATIVE); KETONES,URINE NEGATIVE (NEGATIVE); LEUKOCYTE ESTERASE ,URINE 3+ (NEGATIVE); NITRITE, URINE POSITIVE (NEGATIVE); PH,URINE 6.5 (5.0-8.0); PROTEIN URINE NEGATIVE (NEGATIVE); UROBILINOGEN,URINE 0.2 (0.2-1.0)
[2016-12-17 01:56] LABS: RBC,URINE 20-50 /HPF (0-3); WBC,URINE >100 /HPF (0-3)
[2016-12-17 01:57] LABS: BACTERIA,URINE MODERATE /HPF (None Seen); MUCUS,URINE None Seen /LPF (None Seen)
--- NOTE | 2016-12-17 02:18 | NUR ---
ROUND Patient sleeping comfortable. Respiration even and unlabored. No acute distress. Trach intact to room air. Continue o IVF. F/c intact, drain gravity with yellow urine, slight cloudy. Safety measure maintained. Bed in low position, bed alarm on, side rails up. Continue to monitor.
--- NOTE | 2016-12-17 04:04 | NUR ---
ROUND Patient sleeping comfortable. Respiration even and unlabored. No acute distress. Trach intact to room air. Continue on IVF. F/C intact, drain gravity with yellow and slight cloudy urine. Safety measure maintained. Call light within reached. Bed in low position, bed alarm on, side rails up. Continue to monitor.
--- NOTE | 2016-12-17 05:24 | NUR ---
ROUND Patient resting on the bed with eyes closed. Respiration even and unlabored. No acute distress. Trach intact to room air. Patient O2 sat=88% at this time, refused oxygen and stated "That's fine. I don't need oxygen." Safety measure maintained. Safety measure maintained. Call light within reached. Bed in low position side rails up, bed alarm on. Continue to monitor.
[2016-12-17 06:30] LABS: BASOPHILS % (AUTO) 0.6 % (0.0-2.0); EOSINOPHILS # (AUTO) 0.2 K/uL (0.0-0.4); EOSINOPHILS % (AUTO) 3.1 % (0.0-4.0); HEMATOCRIT 36.3 % (36-54); HEMOGLOBIN 11.6 g/dL (14.0-18.0); LYMPHOCYTES # (AUTO) 1.5 K/uL (1.0-5.5); LYMPHOCYTES % (AUTO) 20.4 % (20.5-51.5); MEAN CORPUSCULAR HEMOGLOBIN 25 pg (27-31); MEAN CORPUSCULAR HGB CONC 32 % (32-36); MEAN CORPUSCULAR VOLUME 79 fL (79.0-98.0); MONOCYTES # (AUTO) 0.9 K/uL (0.0-1.0); MONOCYTES % (AUTO) 11.7 % (1.7-9.3); NEUTROPHILS # (AUTO) 4.8 K/uL (1.8-7.7); NEUTROPHILS % (AUTO) 64.2 % (40.0-70.0); PLATELET COUNT (AUTO) 258 K/uL (130-430); RED BLOOD CELL COUNT(AUTO) 4.57 MIL/uL (4.2-6.2); WHITE BLOOD COUNT (AUTO) 7.4 K/uL (4.8-10.8)
--- NOTE | 2016-12-17 06:39 | NUR ---
CLOSING NOTE Patient resting on the bed with eyes closed. Respiration even and unlabored. No acute distress. Trach intact, breath in RA. O2 sat remained 87-90% for the most of time during shift. However, patient refused O2 and stat that "I don't need oxygen. I didn't use oxygen. I an fine." Skin warm and dry to touch. Colostomy intact to right with brown stool, no leakage. F/c intact, drain gravity with yellow and slight cloudy urine. IV intact to right hand, no redness, no swelling, no drainage. On NS at 70ml/hr, infusing well. All needs met. Safety measure maintained. Bed in low position, side rails up, bed alarm on. Call light within reached. Will endorse to morning shift nurse.
[2016-12-17 06:55] LABS: CALCIUM 7.8 mg/dL (8.4-11.0); CREATININE 2.43 mg/dL (0.55-1.30); POTASSIUM 4.3 mmol/L (3.5-5.1)
--- NOTE | 2016-12-17 07:40 | NUR ---
INITIAL NOTE RECEIVED PATIENT FROM DIRECTOR OF COMMUNITY CENTER NURSE, PATIENT IS CURRENTLY RESTING IN BED WITH EYES CLOSED, NO SIGNS OF DISTRESS NOTED, BREATHING IS EVEN AND UNLABORED, ASSESSMENT COMPLETE, PATIENT HAS TRACH, INTACT, PATIENT IS ON ROOM AIR SATING AT 93%, PATIENT HAS COLOSTOMY BAG, INTACT, TO RIGHT LOWER ABDOMEN, PATIENT HAS IV TO RIGHT HAND WITH FLUIDS INFUSING, NO SIGNS OF INFILTRATION NOTED, PATIENT HAS MCCAULEY CATH, DRAINING YELLOW URINE, CALL WALL LEFT NEXT TO PATIENT'S HAND, BED IN LOWEST POSITION, BED ALARM ON, FALL PRECAUTIONS IN PLACE, WILL CONTINUE TO MONITOR.
[2016-12-17 07:54] LABS: BLOOD GAS BASE EXCESS -8.7 mmol/L (-3.0-3.0); BLOOD GAS PH 7.233 (7.350-7.450)
[2016-12-17] MEDS: GABAPENTIN 300 MG CAPSULE PO SCH ×3 (08:52→20:47)
[2016-12-17] MEDS: DIVALPROEX SODIUM 500 MG TAB.SR.24H (DEPAKOTE ER) PO SCH ×2 (08:52→20:45)
[2016-12-17] MEDS: levETIRAcetam 500 MG TABLET PO SCH ×2 (08:52→20:45)
[2016-12-17] MEDS: ARIPiprazole 2 MG TAB PO SCH (08:53)
[2016-12-17] MEDS: BACLOFEN 10 MG TABLET PO SCH ×3 (08:53→20:45)
[2016-12-17] MEDS: HEPARIN SODIUM,PORCINE 5000 UNITS/ML VIAL SUBCUT SCH ×2 (08:55→20:47)
--- NOTE | 2016-12-17 09:00 | NUR ---
MEDICATIONS PATIENT RECEIVED MORNING MEDICATIONS, EDUCATED PATIENT ON POTENTIAL SIDE EFFECTS, PATIENT VERBALIZED UNDERSTANDING, NO OTHER NEEDS AT THIS TIME, WILL CONTINUE TO MONITOR.
--- NOTE | 2016-12-17 09:27 | NUR ---
Nutrition Update Alvaro Scale 14 noted. Pt admitted for ARF. Diet: regular BMI: 36 kg/m2 RD to follow per nutrition care standards.
--- NOTE | 2016-12-17 09:38 | NUR ---
CONSULT PULMONOLOGY RESP ACIDOSIS DR CORADO [phone] S/W OFFICE @ [phone]
[2016-12-17] MEDS ORDERED: IPRATROPIUM BROM 0.5 MG/2.5 ML VIAL.NEB (ATROVENT) INH PRN (10:00)
[2016-12-17] MEDS ORDERED: ALBUTEROL SULFATE 0.083% 2.5 MG/3 ML VIAL.NEB INH PRN (10:00)
[2016-12-17] MEDS: SODIUM BICARBONATE 8.4% JECT 100 MEQ in D5W 1,000 ML IV SCH (10:37)
[2016-12-17] MEDS: cefTRIAXone 1 GM in D5W 50 ML IV SCH (10:37)
--- NOTE | 2016-12-17 11:30 | NUR ---
RN ROUNDS PATIENT IS CURRENTLY RESTING IN BED, NO SIGNS OF DISTRESS NOTED, BREATHING IS EVEN AND UNLABORED, PATIENT HAS NO COMPLAINTS OF PAIN OR DISCOMFORT, WILL CONTINUE TO MONITOR.
--- NOTE | 2016-12-17 11:40 | NUR ---
F/U CONSULT PSYC ACUTE PSYCHOSIS DR RUSSELL [phone] S/W NURYS OFFICE @ [phone]
--- NOTE | 2016-12-17 13:21 | NUR ---
PASSY MACO VALVE: PATIENT SAID HE HAS STRONG SNIFFED AND HIS PASSY MACO VALVE FLIED OUT, BUT WE CAN NOT FIND IT. PER FLAKITA, THE RESPIRATORY THERAPIST, PATIENT HAS ONE THIS MORNING . CALL AND SHE HAS ORDERED PUSSY MACO TOLERATED.
[2016-12-17] MEDS ORDERED: HYDROmorphone 2 MG/ML VIAL ONE (13:28)
--- NOTE | 2016-12-17 13:30 | NUR ---
RN ROUNDS PATIENT WAS GIVEN PRN PAIN MEDICATION FOR SEVER PAIN IN RIGHT LEG, WILL REASSESS, NO SIGNS OF DISTRESS NOTED, WILL CONTINUE TO MONITOR.
--- NOTE | 2016-12-17 13:32 | NUR ---
CONSULT SWALLOW DARIUS LEFT FOR JUWAN ()[phone]@ [phone]
--- NOTE | 2016-12-17 15:03 | NUR ---
RN ROUNDS PATIENT IS CURRENTLY RESTING IN BED,NO SIGNS OF DISTRESS, NO COMPLAINTS OF PAIN, WILL CONTINUE TO MONITOR PATIENT, FALL PRECAUTIONS IN PLACE.
[2016-12-17] MEDS: ALBUTEROL SULFATE 0.083% 2.5 MG/3 ML VIAL.NEB INH SCH ×2 (16:10→20:51)
--- NOTE | 2016-12-17 16:10 | NUR ---
S.T. SPEECH EVAL PERFORMED FOR PASSY MACO VALVE (PMV), R.T. PRESENT. PT NOW FITTED W/ NEW PMV AND TOLERATED WELL AND ABLE TO PHONATE. DECREASED VOLUME WITH SOME AIR LEAKAGE NOTED, BUT BOTH PT AND R.T. CONFIRMED THAT THIS CONDITION WAS PRESENT EVEN W/ PREVIOUS PMV. NO IMPROVEMENT NOTED W/ ANY ADJUSTMENT BY R.T. REC: CONTINUE TO USE PMV INDICATED. NURSE IRON NOTIFIED. [id number] CK [id number] CK [id number] CK NOMS LEVEL 4
--- NOTE | 2016-12-17 17:09 | NUR ---
RN ROUNDS PATIENT IS CURRENTLY RESTING IN BED WITH EYES CLOSED, BREATHING IS EVEN AND UNLABORED, CALL WALL LEFT NEXT TO PATIENT'S HAND, BED IN LOWEST POSITION, SIDE RAILS UP, FALL PRECAUTIONS IN PLACE.
[2016-12-17] MEDS ORDERED: QUEtiapine FUMARATE 200 MG TAB.SR.24H PO SCH (18:00)
--- NOTE | 2016-12-17 18:30 | NUR ---
CLOSING NOTE PATIENT IS CURRENTLY RESTING IN BED, NO SIGNS OF DISTRESS NOTED, PATIENT'S O2 WAS DECREASING, PUT ON 2L OF 02, PATIENT'S OXYGEN LEVELS INCREASED, NO OTHER NEEDS AT THIS TIME, BED IN LOWEST POSITION, BED ALARM ON, SIDE RAILS UP, FALL PRECAUTIONS IN PLACE.
--- NOTE | 2016-12-17 20:00 | NUR ---
NOTES; SEEN PT IN BED, A/A/O X3. PT HAS A TRACH, O2 AT 2L VIA NASAL CANNULAR. O2 SAT 96%. COLOSTOMY TO THE RT ABD WITH WATERY BROWN STOOL NOTED. REDNESS TO ABDOMINAL FOLDS NOTED. PT REFUSED FOR NURSE TO ASSESS BACK AND VINOD AREA. MCCAULEY CATHETER DRAINING TO GRAVITY, CLOUDY URINE OUT PUT. PT REFUSED TO BE TURNED. ADVISED PT ABOUT THE IMPORTANCE OF REPOSITIONING TO PREVENT SKIN FROM BREAKING DOWN. PT STILL REFUSED. CONTACTED TO YESSICA LOWER EXT. 3+ EDEMA TO YESSICA FEET. ELEVATED LOWER EXT ON PILLOW SUPPORT. DENIES ANY PAIN AT THIS TIME. BED LOCKED AND IN LOW POSITION, SIDE RAILS UP X3. CALL LIGHT WITHIN REACH. SAFETY MEASURES IN PROGRESS.
[2016-12-17] MEDS: ATORVASTATIN 20 MG TABLET PO SCH (20:45)
[2016-12-17] MEDS: traZODone HCL 50 MG TABLET (DESYREL) PO SCH (20:45)
[2016-12-17] MEDS: guaiFENesin ER 600 MG TAB PO SCH (20:46)
--- NOTE | 2016-12-17 20:52 | NUR ---
NOTES; SCHEDULED PO MEDS ADMINISTERED. HEPARIN ADMINISTERED SUBCUTANEOUSLY. PT TOLERATED MEDS WELL.
[2016-12-17] MEDS: HYDROmorphone 2 MG/ML VIAL IVP PRN (20:58)
--- NOTE | 2016-12-17 20:59 | NUR ---
DILAUDID GIVEN Patient c/o right leg pain 10/10, Dilaudid 2mg IVP given as ordered. No acute distress. Trach intact. On O2 2L/min via NC and receiving breathing treatment at this time. Safety measure maintained. Call light within reached. Will continue to monitor.
--- NOTE | 2016-12-17 22:00 | NUR ---
NOTES; PT REFUSED TO BE REPOSITIONED. INFORMED PT ABOUT THE IMPORTANCE OF REPOSITIONING AND TURNING TO PREVENT SKIN FROM BREAKING DOWN. PT STILL REFUSED. RN COVERING NOTIFIED.
--- NOTE | 2016-12-18 00:05 | NUR ---
NOTES; PT REFUSED TO BE REPOSITIONED. INFORMED PT ABOUT THE IMPORTANCE OF REPOSITIONING AND TURNING TO PREVENT SKIN FROM BREAKING DOWN. PT STILL REFUSED. RN COVERING NOTIFIED. COLOSTOMY BAG EMPTIED 250ML OF BROWN WATERY STOOL. COLOSTOMY CARE PROVIDED. SAFETY MEASURES IN PROGRESS.
[2016-12-18] MEDS: ALBUTEROL SULFATE 0.083% 2.5 MG/3 ML VIAL.NEB INH SCH ×4 (00:56→21:14)
[2016-12-18] MEDS: IPRATROPIUM BROM 0.5 MG/2.5 ML VIAL.NEB (ATROVENT) INH SCH ×6 (00:57→21:15)
--- NOTE | 2016-12-18 02:00 | NUR ---
NOTES; AFTER TALKING TO PT ABOUT IMPORTANCE OF REPOSITIONING TO PREVENT SKIN FROM BREAKING DOWN, PT AGREED TO BE REPOSITIONED. REFUSED COLOSTOMY CARE AT THIS TIME. DENIES ANY PAIN. SAFETY MEASURES IN PROGRESS.
[2016-12-18 03:58] VITALS: BP_SYST 103
--- NOTE | 2016-12-18 04:00 | NUR ---
NOTES; RESTING QUIETLY, EASILY AROUSED. REPOSITIONING TO PREVENT SKIN FROM BREAKING DOWN. PT REFUSED COLOSTOMY CARE AT THIS TIME. DENIES ANY PAIN. SAFETY MEASURES IN PROGRESS.
--- NOTE | 2016-12-18 05:58 | NUR ---
NOTES; TOTAL BED BATH GIVEN. LINEN CHANGED. EPTIED 100ML OF WATERY STOOL FROM COLOSTOMY BAG. COLOSTOMY CARE PROVIDED. REDNESS TO ABDOMINAL FOLDS AND EXCORIATION TO VINOD AND BUTTOCKS AREA NOTED. WASHED REDDENED AREA AND BUTTOCKS, PAT DRY. INTER DRY CLOTH APPLIED TO ABDOMINAL FOLDS. PT REFUSED PICTURE TO BE TAKEN BECAUSE IT WILL TAKE TOO LONG AND HE WANT TO SLEEP. PER PT, "LATER". ADVISED PT ABOUT THE IMPORTANCE OF THE PICTURES TO BE TAKEN. PT STILL REFUSED. WILL ENDORSE TO AM NURSE. NOTED PUSS LIKE URINE IN MCCAULEY CATHETER TUBING. WILL CALL DR SHAH AND NOTIFY. RN COVERING AND CHARGE NURSE NOTIFIED. REPOSITIONED. SAFETY MEASURES IN PROGRESS.
--- NOTE | 2016-12-18 06:13 | NUR ---
NOTES; DR SHAH CALLED, SPOKE WITH MD AND INFORMED HIM ABOUT PT PUSS URINE. URINE CULTURE ORDER RECEIVED. URINE SAMPLE COLLECTED AND SENT TO LAB.
[2016-12-18 06:37] LABS: BASOPHILS % (AUTO) 0.6 % (0.0-2.0); EOSINOPHILS # (AUTO) 0.1 K/uL (0.0-0.4); EOSINOPHILS % (AUTO) 1.4 % (0.0-4.0); HEMATOCRIT 37.5 % (36-54); HEMOGLOBIN 11.9 g/dL (14.0-18.0); LYMPHOCYTES # (AUTO) 1.1 K/uL (1.0-5.5); LYMPHOCYTES % (AUTO) 16.5 % (20.5-51.5); MEAN CORPUSCULAR HEMOGLOBIN 25 pg (27-31); MEAN CORPUSCULAR HGB CONC 32 % (32-36); MEAN CORPUSCULAR VOLUME 80 fL (79.0-98.0); MONOCYTES # (AUTO) 0.8 K/uL (0.0-1.0); NEUTROPHILS # (AUTO) 4.7 K/uL (1.8-7.7); NEUTROPHILS % (AUTO) 69.5 % (40.0-70.0); PLATELET COUNT (AUTO) 250 K/uL (130-430); RED CELL DISTRIBUTION WIDTH 18.1 % (9.0-15.0); WHITE BLOOD COUNT (AUTO) 6.7 K/uL (4.8-10.8)
[2016-12-18 07:08] LABS: CALCIUM 8.3 mg/dL (8.4-11.0); CREATININE 2.55 mg/dL (0.55-1.30); POTASSIUM 4.5 mmol/L (3.5-5.1)
[2016-12-18 08:00] VITALS: BP_SYST 124
--- NOTE | 2016-12-18 08:00 | NUR ---
NOTE PT RESTING IN BED. TRACH INTACT AND SATING PT WELL AT THIS TIME. IV IN RIGHT HAND INTACT AND PATENT, IVF'S INFUSING WELL. PT DOES NOT WANT HOB UP TO EAT. STATES HE WILL EAT LATER ON. NO SOB/RESP DISTRESS OR PAIN/DISCOMFORT NOTED. CALL LIGHT WITHIN REACH. PT NEAR NURSES' STATION FOR CLOSE OBSERVATION AT THIS TIME.
--- NOTE | 2016-12-18 09:00 | NUR ---
NOTE PT'S COLOSTOMY BAG INTACT AND MODERATE AMOUNT OF DRAINAGE AT THIS TIME. PT HAS INTER DRY CLOTH BETWEEN ABDOMINAL FOLDS AND NEAR VINOD AREA, TO KEEP DRY AND MOIST FREE AT THIS TIME.
[2016-12-18] MEDS: cefTRIAXone 1 GM in D5W 50 ML IV SCH (09:15)
[2016-12-18] MEDS: DIVALPROEX SODIUM 500 MG TAB.SR.24H (DEPAKOTE ER) PO SCH ×2 (09:15→20:46)
[2016-12-18] MEDS: guaiFENesin ER 600 MG TAB PO SCH ×2 (09:16→20:46)
[2016-12-18] MEDS: levETIRAcetam 500 MG TABLET PO SCH ×2 (09:16→20:47)
[2016-12-18] MEDS: BACLOFEN 10 MG TABLET PO SCH ×3 (09:16→20:46)
[2016-12-18] MEDS: ARIPiprazole 2 MG TAB PO SCH (09:16)
[2016-12-18] MEDS: GABAPENTIN 300 MG CAPSULE PO SCH (09:17)
[2016-12-18] MEDS: HEPARIN SODIUM,PORCINE 5000 UNITS/ML VIAL SUBCUT SCH ×2 (09:20→20:49)
--- NOTE | 2016-12-18 10:30 | NUR ---
NOTE PT WAS SEEN AND ASSESSED BY DR SHAH AT 0930AM AND DR RUSSELL AT 1030AM. ORDERS GIVEN AND CARRIED OUT. PT NON COMPLIANT ABOUT LETTING STAFF TURN HIM Q2'. REFUSES TO LET STAFF TURN TO CHECK BACK AND COCCYX AREA AT THIS TIME. INSTRUCTED TO HE NEEDS TO BE TURNED Q1' TO PROMOTED CIRCULATION IN BACK AND KEEP PRESSURE OFF HIS BACK. PT STILL REFUSES. CALL LIGHT WITHIN REACH.
[2016-12-18 12:00] VITALS: BP_SYST 100
[2016-12-18] MEDS: SODIUM BICARBONATE 8.4% JECT 100 MEQ in D5W 1,000 ML IV SCH (12:35)
--- NOTE | 2016-12-18 12:45 | NUR ---
NOTE PT ASSISTED TO SITTING POSITION IN BED - HOB AT 75', PT HAS LUNCH TRAY ACROSS HIM AND HE IS EATING INDEPENDENTLY WITH MINIMAL ASSIST AT THIS TIME. NO SOB/RESP DISTRESS NOTED. PT'S COLOSTOMY BAG WAS EMPTIED AT THIS TIME WELL. CALL LIGHT WITHIN REACH.
[2016-12-18] MEDS: GABAPENTIN 100 MG CAPSULE PO SCH ×2 (14:35→20:46)
[2016-12-18] MEDS ORDERED: GABAPENTIN 300 MG CAPSULE PO SCH (15:00)
--- NOTE | 2016-12-18 15:00 | NUR ---
NOTE PT TALKING TO SOMEONE ON THE PHONE AND DOES NOT WANT ANYONE TO DO ANY CARE OR TREATMENTS AT THIS TIME. PT STATES HE HAS NOT NEEDS AT THIS TIME. CALL LIGHT WITHIN REACH.
[2016-12-18 15:27] LABS: BLOOD GAS PH 7.248 (7.350-7.450)
[2016-12-18 15:28] LABS: ABG TOTAL HEMOGLOBIN 12.1 G/dL (12.0-18.0); BLOOD GAS BASE EXCESS -2.8 mmol/L (-3.0-3.0); BLOOD GAS COHb% 0.6 % (0.5-1.5); BLOOD GAS HHB 5.2 % (0.0-6.0); BLOOD O2Hb% 93.7 % (94.0-97.0)
--- NOTE | 2016-12-18 15:42 | NUR ---
CRYSTAL ALARCON, DR CORADO CALLED RE: ABG RESULTS. SPOKE TO MARY
[2016-12-18 16:00] VITALS: BP_SYST 100
--- NOTE | 2016-12-18 17:50 | NUR ---
NOTE PT WAS GIVEN HYGIENE CARE AND TURNED WITH 2 PERSON ASSIST. PT TOLERATED TURNING WELL AT THIS TIME. PT HAD TRACH CARE DONE ALL SHIFT BY RESP THERAPIST. MCCAULEY CATHETER INTACT AND DRAINING WELL ALL SHIFT. COLOSTOMY BAG WAS EMPTIED 3 TIMES THIS SHIFT. PT HAS HAD PULSE OX ATTACHED TO RIGHT FINGER ALL SHIFT FOR MONITORING. NO NEEDS NOTED AT THIS TIME. CALL LIGHT WITHIN REACH.
[2016-12-18] MEDS ORDERED: QUEtiapine FUMARATE 200 MG TAB.SR.24H PO SCH (18:00)
[2016-12-18] MEDS: QUEtiapine FUMARATE 25 MG TABLET PO SCH (18:08)
--- NOTE | 2016-12-18 18:30 | NUR ---
NOTE SPOKE TO DR SHAH AND VERIFIED ORDER FOR D51/2 AT 75CC/HR AND NYSTATIN POWDER BID FOR MOIST BODY AREAS. PT SITTING UP IN BED EATING HIS DINNER. TRACH INTACT AND SATING PT WELL AT THIS TIME WITH MASK AT 2L AT THIS TIME. MCCAULEY CATHETER INTACT AND DRAINING WELL. COLOSTOMY BAG EMPTIED AT THIS TIME. NO NEEDS NOTED AT THIS TIME. CALL LIGHT WITHIN REACH.
[2016-12-18] MEDS: D5/0.45 NS 1,000 ML IV SCH (18:43)
[2016-12-18] MEDS: HYDROmorphone 2 MG/ML VIAL IVP PRN (18:44)
[2016-12-18 20:00] VITALS: BP_SYST 109
--- NOTE | 2016-12-18 20:00 | NUR ---
NOTES; SEEN PT IN BED, A/A/O X3. UNCOOPERATIVE PT HAS A TRACH TO MASK, O2 AT 2L. O2 SAT 100%. COLOSTOMY TO THE RT ABD APPEARED TO BE FULL, NOTED WATERY BROWN STOOL IN COLOSTOMY BAG. PT REFUSED COLOSTOMY CARE AT THIS TIME. REDNESS TO ABDOMINAL FOLDS NOTED. PT REFUSED FOR NURSE TO ASSESS BACK AND VINOD AREA. PT REFUSED TO BE REPOSITIONED OR TURNED. ADVISED PT ABOUT IMPORTANCE OF NURSE ASSESSMENT OF SKIN CARE AND REPOSITIONING AND TURN TO PREVENT SKIN FROM FURTHER BREAK DOWN. PT STILL REFUSED AND WILL NOT RESPOND. MCCAULEY CATHETER DRAINING TO GRAVITY, CLOUDY URINE OUT PUT. MCCAULEY SECUREMENT IN PLACE. 3+ EDEMA TO YESSICA FEET. ELEVATED LOWER EXT ON PILLOW SUPPORT. PT REFUSED TO BE TRANSFERRED ON A BED WITH AIR MATTRESS. DENIES ANY PAIN AT THIS TIME. BED LOCKED AND IN LOW POSITION, SIDE RAILS UP X3. SEIZURE PRECAUTION IN PLACE. CALL LIGHT AND BEDSIDE TABLE WITHIN REACH. SAFETY MEASURES IN PROGRESS. WILL CONTINUE TO MONITOR.
[2016-12-18] MEDS: SODIUM BICARBONATE 650 MG TABLET PO SCH (20:46)
[2016-12-18] MEDS: ATORVASTATIN 20 MG TABLET PO SCH (20:46)
[2016-12-18] MEDS: traZODone HCL 50 MG TABLET (DESYREL) PO SCH (20:47)
--- NOTE | 2016-12-18 20:53 | NUR ---
NOTES; SCHEDULED PO MEDICATION ADMINISTERED. PT TOLERATED MEDS WELL.
[2016-12-18] MEDS: NYSTATIN 15 GM TOPICAL POWDER TP SCH (21:00)
--- NOTE | 2016-12-18 21:03 | NUR ---
NOTES; PT AGREED FOR COLOSTOMY BAG TO BE CHANGED. EMPTIED 200ML OF LOOSE BROWN STOOL. COLOSTOMY CARE PROVIDED. PT IS STILL REFUSING TO BE REPOSITIONED. INFORMED PT ABOUT THE IMPORTANCE OF TURNING AND REPOSITIONING TO PREVENT SKIN FROM BREAKING DOWN. PT STILL REFUSED. RN COVERING AND CHARGE NURSE INFORMED.
--- NOTE | 2016-12-18 23:00 | NUR ---
NOTES; RESTING QUIETLY, EASILY AROUSED. REPOSITIONING TO PREVENT SKIN FROM BREAKING DOWN. PT REFUSED COLOSTOMY CARE AT THIS TIME. DENIES ANY PAIN. SAFETY MEASURES IN PROGRESS.
--- NOTE | 2016-12-19 00:15 | NUR ---
NOTES; RESTING QUIETLY, EASILY AROUSED. REPOSITIONING TO PREVENT SKIN FROM BREAKING DOWN. PT REFUSED COLOSTOMY CARE AT THIS TIME. DENIES ANY PAIN. SAFETY MEASURES IN PROGRESS.
[2016-12-19 00:59] VITALS: BP_SYST 100
[2016-12-19] MEDS: ALBUTEROL SULFATE 0.083% 2.5 MG/3 ML VIAL.NEB INH SCH ×4 (01:00→20:03)
[2016-12-19] MEDS: IPRATROPIUM BROM 0.5 MG/2.5 ML VIAL.NEB (ATROVENT) INH SCH ×4 (01:00→20:03)
--- NOTE | 2016-12-19 02:00 | NUR ---
NOTES; TOTAL BED BATH GIVEN. LINEN CHANGED. EMPTIED 150ML OF LOOSE STOOL FROM COLOSTOMY BAG. COLOSTOMY CARE PROVIDED. REDNESS TO ABDOMINAL FOLDS AND EXCORIATION TO VINOD AND BUTTOCKS AREA NOTED. CLEANSED REDDENED AREA AND BUTTOCKS, PAT DRY. ORDERED NYSTATIN POWDER TO REDDENED AREA UNAVAILABLE PER HOUSE SUP. PT IS STILL REFUSING PICTURES OF REDDENED AREA AND EXCORIATED BUTTOCKS TO BE TAKEN . ADVISED PT ABOUT THE IMPORTANCE OF THE PICTURES TO BE TAKEN. PT STILL REFUSED. PT AGREED TO BE REPOSITIONED. SAFETY MEASURES IN PROGRESS. WILL CONTINUE TO MONITOR.
--- NOTE | 2016-12-19 04:00 | NUR ---
NOTES; RESTING QUIETLY, EASILY AROUSED. REPOSITIONING TO PREVENT SKIN FROM BREAKING DOWN. PT REFUSED COLOSTOMY CARE AT THIS TIME. DENIES ANY PAIN. SAFETY MEASURES IN PROGRESS.
[2016-12-19 04:32] VITALS: BP_SYST 104
[2016-12-19 05:58] LABS: BASOPHILS % (AUTO) 0.7 % (0.0-2.0); EOSINOPHILS # (AUTO) 0.1 K/uL (0.0-0.4); EOSINOPHILS % (AUTO) 1.9 % (0.0-4.0); HEMATOCRIT 33.7 % (36-54); HEMOGLOBIN 10.9 g/dL (14.0-18.0); LYMPHOCYTES # (AUTO) 1.2 K/uL (1.0-5.5); LYMPHOCYTES % (AUTO) 19.4 % (20.5-51.5); MEAN CORPUSCULAR HEMOGLOBIN 25 pg (27-31); MEAN CORPUSCULAR HGB CONC 32 % (32-36); MEAN CORPUSCULAR VOLUME 78 fL (79.0-98.0); MONOCYTES # (AUTO) 0.7 K/uL (0.0-1.0); MONOCYTES % (AUTO) 10.9 % (1.7-9.3); NEUTROPHILS % (AUTO) 67.1 % (40.0-70.0); PLATELET COUNT (AUTO) 243 K/uL (130-430); RED CELL DISTRIBUTION WIDTH 17.8 % (9.0-15.0)
[2016-12-19 06:04] LABS: CALCIUM 8.1 mg/dL (8.4-11.0); CREATININE 2.36 mg/dL (0.55-1.30); POTASSIUM 4.4 mmol/L (3.5-5.1)
--- NOTE | 2016-12-19 08:00 | NUR ---
AM Initial Notes Pt aaox2-3 with episodes of forgetfulness and confusion. Complaints of right hip and leg pain 02/18. Pt coughing up thick phlegm but no sob, difficulty breathing or distress noted. Trach to mask @ 2L. Colostomy bag in place with slightly liquidy and soft greenish brownish stool noted in bag. Montoya catheter in place with whitish colored urine noted in bag. Pt refused to be repositioned. Fall and safety precautions enforced. Encouraged to call for assistance. Will monitor.
[2016-12-19 08:11] VITALS: BP_SYST 121
[2016-12-19] MEDS: HYDROmorphone 2 MG/ML VIAL IVP PRN (08:26)
[2016-12-19] MEDS: D5/0.45 NS 1,000 ML IV SCH (08:31)
[2016-12-19] MEDS: NYSTATIN 15 GM TOPICAL POWDER TP SCH ×2 (09:00→21:30)
[2016-12-19 09:40] LABS: BLOOD GAS PH 7.166 (7.350-7.450)
[2016-12-19 09:41] LABS: ABG TOTAL HEMOGLOBIN 12.2 G/dL (12.0-18.0); BLOOD GAS BASE EXCESS -5.3 mmol/L (-3.0-3.0); BLOOD GAS COHb% 0.7 % (0.5-1.5); BLOOD GAS HHB 7.7 % (0.0-6.0)
[2016-12-19] MEDS: BACLOFEN 10 MG TABLET PO SCH ×3 (10:00→21:30)
[2016-12-19] MEDS: GABAPENTIN 100 MG CAPSULE PO SCH ×3 (10:00→21:30)
[2016-12-19] MEDS: HEPARIN SODIUM,PORCINE 5000 UNITS/ML VIAL SUBCUT SCH ×2 (10:00→21:31)
[2016-12-19] MEDS: DIVALPROEX SODIUM 500 MG TAB.SR.24H (DEPAKOTE ER) PO SCH ×2 (10:00→21:29)
[2016-12-19] MEDS: levETIRAcetam 500 MG TABLET PO SCH ×2 (10:00→21:29)
[2016-12-19] MEDS: SODIUM BICARBONATE 650 MG TABLET PO SCH ×2 (10:00→21:30)
[2016-12-19] MEDS: guaiFENesin ER 600 MG TAB PO SCH ×2 (10:00→21:30)
--- NOTE | 2016-12-19 10:00 | NUR ---
Rounds Pt asleep but easily awakened to stimuli. No signs of facial grimacing of pain or discomfort. No sob, difficulty breathing or distress noted. Pt continues to refuse to be repositioned and cleaned for hygiene. Suctioned and kept comfortable. Will monitor.
--- NOTE | 2016-12-19 10:16 | NUR ---
1015 PT REMOVED SELF FROM VENT. REFUSES VENTILATOR. PLACED BACK ON TRACH COLLAR. Addendum: 12/19/16 at 1019 by Radha Wilcox RT Amended: Links added.
--- NOTE | 2016-12-19 10:55 | NUR ---
Patient suctioned , sterile technique used. Speaking valve placed on trach per patient request.
[2016-12-19] MEDS: cefTRIAXone 1 GM in D5W 50 ML IV SCH (11:00)
--- NOTE | 2016-12-19 11:00 | NUR ---
Dr Charles called back - He is covering for dr Castro. Informed him that the patient had removed the ventilator and is refusing to have it placed back on. Informed him that patient is now back to trach mask. Also asked if we still need the ABG since the patient is not on vent. He stated we do not need one. We can however do an ABG PRN for respiratory distress.
--- NOTE | 2016-12-19 12:00 | NUR ---
Rounds Pt awake eating lunch. No complaints of pain or discomfort at this time. Thick yellowish sputum noted when coughing. Pt refused to be suctioned and repositioned. Encouraged to eat. Will monitor.
[2016-12-19 12:24] VITALS: BP_SYST 100
--- NOTE | 2016-12-19 14:00 | NUR ---
Resting Pt asleep. No signs of facial grimacing for pain or discomfort. No sob, difficulty breathing or distress noted. Will monitor.
--- NOTE | 2016-12-19 15:15 | NUR ---
D/C Olson catheter Pt awake and broke the connector of olson catheter. Called and spoke with Dr. Ness to inform of situation. states to D/C olson catheter and keep it off if patient is producing urine. D/C olson catheter. Will observe.
--- NOTE | 2016-12-19 16:00 | NUR ---
Rounds Pt awake with no complaints of pain or discomfort. Productive cough with thick sputum noted. Suctioned and patient nodded that he felt better after. Incontinent care done. Kept dry, clean and comfortable. Skin to sacrum, buttocks and alireza area appear excoriated. Applied skin barrier cream and repositioned. Kept comfortable and will continue to monitor.
[2016-12-19 16:12] VITALS: BP_SYST 116
[2016-12-19] MEDS: QUEtiapine FUMARATE 25 MG TABLET PO SCH (17:53)
--- NOTE | 2016-12-19 18:30 | NUR ---
Closing notes Pt asleep but easily awakened to stimuli. No signs of facial grimacing for pain or discomfort. No distress noted. Pt refused to eat dinner. Encouraged but continues to refuse. Repositioned and kept comfortable. Refused suctioning. Will endorse care to incoming nurse.
[2016-12-19 19:35] VITALS: BP_SYST 127
--- NOTE | 2016-12-19 19:35 | NUR ---
Initial Notes Pt is A/Ox2, lethargic but arousable to name. No acute respiratory distress noted. Pt is on trache with mask to 2L with O2 saturation at 100%, suctioning provided at this time with clear/whitish moderate amount of sputum noted. Pt tolerated suctioning well. VSS. IV to right hand #22g noted to have infiltrated, will attempt to start new IV. Padded side rails noted for seizure precautions. Unable to fully discuss plan of care due to drowsiness, and some confusion noted. Will reinforce teaching as need, no family at bedside at this time. Swelling noted to bilateral lower and upper extremities. Redness noted to alireza area and buttocks. Colostomy bag noted with some air accumulated. Safety measures in place, side rails up x3 with bed in lowest, locked position, bed alarm on at all times. All needs met at this time. Call light in reach. Will continue to monitor.
[2016-12-19] MEDS: ATORVASTATIN 20 MG TABLET PO SCH (21:30)
[2016-12-19] MEDS: traZODone HCL 50 MG TABLET (DESYREL) PO SCH (21:30)
--- NOTE | 2016-12-19 21:58 | NUR ---
New IV start New IV started to RFA #22g on first attempt. Old IV noted to have infiltrated and removed. All scheduled medications crushed and given with apple sauce, no s/s of aspiration noted, head of bed elevated to high fowlers. Total of 100cc of semi formed yellowish/brown stool emptied from colostomy bag. All needs met at this time. Will continue to monitor.
--- NOTE | 2016-12-19 23:43 | NUR ---
Hygiene care/Suctioning Pt deep suctioned by RT Kuo at this time, with moderate amount of white/clear secretions. Pt is on 2L on mask to trache with O2 saturation at 98%. Total bed bath with skin care given at this time. Z guard applied to buttocks, with nystatin placed to abdominal folds. Pt re positioned with pillows and heels floating for support. All needs met at this time. Call light in reach. Will continue to monitor. Addendum: 12/19/16 at 2346 by Deborah Joyner LVN Pt noted to urinate clear yellow urine at this time while changing.
[2016-12-20 01:19] VITALS: BP_SYST 101
--- NOTE | 2016-12-20 01:24 | NUR ---
Rounds Pt is resting comfortably in bed with no acute respiratory distress noted. RT at bedside suctioning and giving breathing tx as ordered. All needs met. Call light in reach. Will continue to monitor.
[2016-12-20] MEDS: ALBUTEROL SULFATE 0.083% 2.5 MG/3 ML VIAL.NEB INH SCH ×4 (01:29→19:46)
[2016-12-20] MEDS: IPRATROPIUM BROM 0.5 MG/2.5 ML VIAL.NEB (ATROVENT) INH SCH ×4 (01:30→19:46)
--- NOTE | 2016-12-20 04:22 | NUR ---
Suctioning/Alireza care Pt deep suctioned by RT Ayaan at this time, pt tolerated well. Pt's blood pressure checked, 115/65, heart rate 102, 96% on 2L mask, afebrile. Pt given alireza care, z guard applied to buttocks, and nystatin powder to abdominal folds. Pt repositioned with pillows and heels floating for comfort. All needs met at this time. Call light in reach. Will continue to monitor.
[2016-12-20 05:54] LABS: BASOPHILS % (AUTO) 0.5 % (0.0-2.0); EOSINOPHILS # (AUTO) 0.1 K/uL (0.0-0.4); EOSINOPHILS % (AUTO) 2.1 % (0.0-4.0); HEMATOCRIT 34.2 % (36-54); HEMOGLOBIN 10.7 g/dL (14.0-18.0); LYMPHOCYTES # (AUTO) 1.2 K/uL (1.0-5.5); LYMPHOCYTES % (AUTO) 18.5 % (20.5-51.5); MEAN CORPUSCULAR HEMOGLOBIN 25 pg (27-31); MEAN CORPUSCULAR HGB CONC 31 % (32-36); MEAN CORPUSCULAR VOLUME 80 fL (79.0-98.0); MONOCYTES # (AUTO) 0.8 K/uL (0.0-1.0); NEUTROPHILS # (AUTO) 4.4 K/uL (1.8-7.7); NEUTROPHILS % (AUTO) 66.9 % (40.0-70.0); PLATELET COUNT (AUTO) 212 K/uL (130-430); RED CELL DISTRIBUTION WIDTH 17.5 % (9.0-15.0); WHITE BLOOD COUNT (AUTO) 6.5 K/uL (4.8-10.8)
[2016-12-20 06:00] LABS: CALCIUM 8.5 mg/dL (8.4-11.0); CREATININE 2.42 mg/dL (0.55-1.30)
--- NOTE | 2016-12-20 06:27 | NUR ---
Closing Notes Pt suctioned by RT at this time. IV intact to RFA #22g, saline lock. No acute respiratory distress noted. Pt is more awake, and pointing towards the light for me to turn off. VSS. Pt continues on mask to trache at 2L, with good O2 saturation at 97%. All needs met throughout shift. Will endorse care to am nurse. Call light in reach. Will continue to monitor.
[2016-12-20 06:37] VITALS: BP_SYST 115
[2016-12-20 08:00] VITALS: BP_SYST 123
--- NOTE | 2016-12-20 08:00 | NUR ---
0800/CLOSING NOTE RECEIVED REPORT FROM CAR CLERK PULLMAN NURSE. PATIENT IS SITTING UPRIGHT IN BED. PLEASANT, CALM AFFECT, FLAT AFFECT. PATIENT HAS NO NOTABLE SIGNS OF DISTRESS AT THIS TIME. PATIENT IS ON 2L TTUBE. IV SALINE LOCKED. PATIENT COMPLAINT OF 8/10 PAIN IN RIGHT LEG. WOULD LIKE A PAIN SHOT, AND ORAL CARE. PATIENTS BED IN LOWEST POSITION, CALL LIGHT WITHIN REACH OF PATIENT, AND SIDE RAILS ARE UP. WILL CONTINUE TO MONITOR PATIENT FOR CHANGES IN STATUS.
--- NOTE | 2016-12-20 08:35 | NUR ---
NOTE SPOKE WITH DR. TEJADA REGARDING CRITICAL LAB VALUES FOR ABG PH AND PCO2. KNOWS PATIENT HAS PREVIOUSLY REFUSED VENTILATOR. OKAY TO GO TO ROOM AIR, MAINTAIN O2 SAT BETWEEN 90-95%. SPOKE WITH DR. SHAH AFTER HE SAW THE PATIENT. ENCOURAGED PATIENT TO BE ON VENTILATOR. PATIENT AGREED. CALLED RT.
[2016-12-20] MEDS: cefTRIAXone 1 GM in D5W 50 ML IV SCH (08:40)
[2016-12-20] MEDS: BACLOFEN 10 MG TABLET PO SCH ×3 (08:40→21:30)
[2016-12-20] MEDS: DIVALPROEX SODIUM 500 MG TAB.SR.24H (DEPAKOTE ER) PO SCH ×2 (08:40→21:29)
[2016-12-20] MEDS: SODIUM BICARBONATE 650 MG TABLET PO SCH ×2 (08:41→21:30)
[2016-12-20] MEDS: guaiFENesin ER 600 MG TAB PO SCH ×2 (08:41→21:30)
[2016-12-20] MEDS: GABAPENTIN 100 MG CAPSULE PO SCH ×3 (08:41→21:30)
[2016-12-20] MEDS: levETIRAcetam 500 MG TABLET PO SCH ×2 (08:41→21:29)
[2016-12-20] MEDS: HEPARIN SODIUM,PORCINE 5000 UNITS/ML VIAL SUBCUT SCH ×2 (08:42→21:29)
[2016-12-20] MEDS: HYDROmorphone 2 MG/ML VIAL IVP PRN ×2 (08:43→18:11)
[2016-12-20] MEDS: NYSTATIN 15 GM TOPICAL POWDER TP SCH ×2 (08:44→21:30)
[2016-12-20 09:47] LABS: ABG TOTAL HEMOGLOBIN 12.2 G/dL (12.0-18.0); BLOOD GAS BASE EXCESS -3.4 mmol/L (-3.0-3.0); BLOOD GAS COHb% 0.7 % (0.5-1.5); BLOOD GAS HHB 3.9 % (0.0-6.0); BLOOD GAS PH 7.241 (7.350-7.450); BLOOD O2Hb% 94.8 % (94.0-97.0)
--- NOTE | 2016-12-20 09:57 | NUR ---
0910 PLACED PT ON VENT AC14 600+5. HR 84 SAT 92%. pt has cuffless trach, leak on vent tidal volume 243, aware. Addendum: 12/20/16 at 0959 by Radha Wilcox RT Amended: Links added.
--- NOTE | 2016-12-20 09:59 | NUR ---
1000 NOTE PATIENT IS SITTING UPRIGHT IN BED. PLEASANT, CALM AFFECT, FLAT AFFECT. PATIENT HAS NO NOTABLE SIGNS OF DISTRESS AT THIS TIME. PATIENT IS ON 2L TTUBE. PATIENTS ABG IS HAS CRITICAL VALUES OF PH AND PCO2. MD AWARE. WOULD LIKE PATIENT TO BE PLACED ON VENTILATOR. CALLED RT. PATIENT PLACED ON VENT AT AC; 600; 14; 35%; PEEP 5. PATIENT TOLERATING WELL. IV SALINE LOCKED. PATIENT PAIN WITHIN TOLERABLE LIMITS, IV MEDICATION GIVEN. PATIENTS BED IN LOWEST POSITION, CALL LIGHT WITHIN REACH OF PATIENT, AND SIDE RAILS ARE UP. WILL CONTINUE TO MONITOR PATIENT FOR CHANGES IN STATUS.
[2016-12-20 10:36] LABS: ABG TOTAL HEMOGLOBIN 11.7 G/dL (12.0-18.0); BLOOD GAS BASE EXCESS -3.2 mmol/L (-3.0-3.0); BLOOD GAS COHb% 0.1 % (0.5-1.5); BLOOD GAS HHB 2.8 % (0.0-6.0); BLOOD O2Hb% 96.6 % (94.0-97.0)
[2016-12-20 11:46] VITALS: BP_SYST 88
--- NOTE | 2016-12-20 12:05 | NUR ---
1200 NOTE PATIENT IS SITTING UPRIGHT IN BED. PLEASANT, CALM AFFECT, FLAT AFFECT. PATIENT HAS NO NOTABLE SIGNS OF DISTRESS AT THIS TIME. PATIENT PLACED ON VENTILATOR. VENT AT AC; 600; 14; 35%; PEEP 5. PATIENT TOLERATING WELL. IV SALINE LOCKED. PATIENT PAIN WITHIN TOLERABLE LIMITS, IV MEDICATION GIVEN. PATIENTS BED IN LOWEST POSITION, PATIENT REPOSITIONED WITH PILLOW SUPPORT. CALL LIGHT WITHIN REACH OF PATIENT, AND SIDE RAILS ARE UP. WILL CONTINUE TO MONITOR PATIENT FOR CHANGES IN STATUS.
--- NOTE | 2016-12-20 14:16 | NUR ---
1400 NOTE PATIENT IS SITTING SEMIFOWLERS IN BED. PLEASANT, CALM AFFECT, FLAT AFFECT. PATIENT HAS NO NOTABLE SIGNS OF DISTRESS AT THIS TIME. PATIENT PLACED ON VENTILATOR. VENT AT AC; 600; 14; 35%; PEEP 5. PATIENT TOLERATING WELL. IV SALINE LOCKED. PATIENT PAIN WITHIN TOLERABLE LIMITS, IV MEDICATION GIVEN. PATIENTS BED IN LOWEST POSITION, PATIENT REPOSITIONED WITH PILLOW SUPPORT. CALL LIGHT WITHIN REACH OF PATIENT, AND SIDE RAILS ARE UP. WILL CONTINUE TO MONITOR PATIENT FOR CHANGES IN STATUS.
[2016-12-20 16:22] VITALS: BP_SYST 103
--- NOTE | 2016-12-20 18:02 | NUR ---
NOTE SPOKE WITH DR. SHAH REGARDING SPUTUM COLLECTED BY RT. BADILLO TO ORDER SPUTUM CULTURE. ORDERED BY NURSE.
[2016-12-20] MEDS: QUEtiapine FUMARATE 25 MG TABLET PO SCH (18:10)
--- NOTE | 2016-12-20 18:46 | NUR ---
1800/CLOSING NOTE WAITING TO GIVE REPORT TO SALES CLERK FOOD NURSE. PATIENT IS SITTING SEMIFOWLERS IN BED. PLEASANT, CALM AFFECT, FLAT AFFECT. PATIENT HAD EPISODE OF DIFFICULTY BREATHING. RT CONTACTED. DEEP SUCTIONING COMPLETED. SPUTUM CULTURE ORDER OBTAINED FROM DR. SHAH AT 1802. SPUTUM TAKEN TO LAB BY RT. PATIENT HAS NO NOTABLE SIGNS OF DISTRESS AT THIS TIME. PATIENT IS ON VENTILATOR. VENT AT AC; 600; 14; 35%; PEEP 5. PATIENT TOLERATING WELL. IV SALINE LOCKED. PATIENT PAIN WITHIN TOLERABLE LIMITS, IV MEDICATION GIVEN. PATIENTS BED IN LOWEST POSITION, PATIENT REPOSITIONED WITH PILLOW SUPPORT. CALL LIGHT WITHIN REACH OF PATIENT, AND SIDE RAILS ARE UP. WILL CONTINUE TO MONITOR PATIENT FOR CHANGES IN STATUS.
[2016-12-20 19:35] VITALS: BP_SYST 102
--- NOTE | 2016-12-20 19:50 | NUR ---
Initial Notes Pt is A/Ox3, sleepy, arousable to name. No acute respiratory distress noted. Pt is on a vent at this time with FiO2 at 34%, Peep 6, VT 600, P mean 15. Pt tolerating vent setting well with O2 saturation at 92%. VSS. IV to right forearm #22g noted intact, saline lock. Padded side rails noted for seizure precautions. Unable to fully discuss plan of care due to drowsiness. Will reinforce teaching as need, no family at bedside at this time. Swelling noted to bilateral lower and upper extremities. Redness noted to alireza area and buttocks. Colostomy bag noted with some air accumulated. Safety measures in place, side rails up x3 with bed in lowest, locked position, bed alarm on at all times. All needs met at this time. Call light in reach. Will continue to monitor.
[2016-12-20] MEDS: ATORVASTATIN 20 MG TABLET PO SCH (21:29)
[2016-12-20] MEDS: traZODone HCL 50 MG TABLET (DESYREL) PO SCH (21:30)
--- NOTE | 2016-12-20 21:47 | NUR ---
Rounds/Scheduled medications At this time all scheduled medications given orally as ordered with no s/s of aspiration noted. Allowed pt enough time to swallow all his pills and water and pudding provided and assisted pt with feeding. Pt is awake, alert at this time with no s/s of acute respiratory distress. All needs met at this time. Call light in reach. Will continue to monitor.
--- NOTE | 2016-12-20 22:58 | NUR ---
Hygiene care/Re positioning Pt given total bed bath at this time with oral and skin care. Nystatin applied to abdominal folds. Z guard applied to buttocks, and underneath his bilateral arm pits. Pt re positioned with pillows and heels floating for comfort. New colostomy bag placed at this time. Pt tolerated bed bath well. All needs met at this time. Call light in reach. Will continue to monitor.
--- NOTE | 2016-12-21 01:34 | NUR ---
Rounds Pt is sleeping safely in bed with no acute respiratory distress noted. Pt tolerating vent settings well as ordered. Safety measures in place. Call light in reach. Will continue to monitor.
--- NOTE | 2016-12-21 05:30 | NUR ---
Rounds/Hygiene care Pt given hygiene care with skin care at this time. Pt re positioned with pillows and heels floating for comfort. Suctioning provided and pt tolerated well. No acute respiratory distress noted. Call light within reach. Will continue to monitor.
--- NOTE | 2016-12-21 06:26 | NUR ---
Closing Notes Pt resting in bed with no acute distress or sob noted. Pt tolerating vent settings well. IV intact to RFA #22g, saline lock. No acute respiratory distress noted. All needs met throughout shift. Will endorse care to am nurse. Call light in reach. Safety measures in place. Will continue to monitor.
[2016-12-21 06:30] LABS: BASOPHILS % (AUTO) 0.4 % (0.0-2.0); EOSINOPHILS # (AUTO) 0.1 K/uL (0.0-0.4); EOSINOPHILS % (AUTO) 1.9 % (0.0-4.0); HEMATOCRIT 35.6 % (36-54); HEMOGLOBIN 11.3 g/dL (14.0-18.0); LYMPHOCYTES # (AUTO) 1.4 K/uL (1.0-5.5); LYMPHOCYTES % (AUTO) 19.6 % (20.5-51.5); MEAN CORPUSCULAR HEMOGLOBIN 25 pg (27-31); MEAN CORPUSCULAR HGB CONC 32 % (32-36); MEAN CORPUSCULAR VOLUME 79 fL (79.0-98.0); MONOCYTES # (AUTO) 0.7 K/uL (0.0-1.0); MONOCYTES % (AUTO) 10.6 % (1.7-9.3); NEUTROPHILS # (AUTO) 4.8 K/uL (1.8-7.7); NEUTROPHILS % (AUTO) 67.5 % (40.0-70.0); PLATELET COUNT (AUTO) 212 K/uL (130-430); RED CELL DISTRIBUTION WIDTH 17.5 % (9.0-15.0)
[2016-12-21 06:49] LABS: CALCIUM 8.8 mg/dL (8.4-11.0); CREATININE 2.42 mg/dL (0.55-1.30); POTASSIUM 3.4 mmol/L (3.5-5.1)
--- NOTE | 2016-12-21 07:26 | NUR ---
OPENING NOTE RECEIVED REPORT FROM THERMOCOUPLE TESTER NURSE. PATIENT RESTING COMFORTABLY AT THIS TIME. PATIENT HAS NO NOTABLE SIGNS OF DISTRESS AT THIS TIME. PATIENT HAS IV SALINE LOCKED PER MD ORDERS. PATIENT HAS VENTILATOR , TRACH TO VENT, AT SETTINGS: PEEP 5; FIO2 35%; 14 RATE; 600 TV. PATIENT TOLERATING VENT SETTINGS WELL. PATIENTS BED IN LOWEST POSITION, CALL LIGHT WITHIN REACH, AND SIDE RAILS ARE UP FOR SAFETY. PATIENT IS ENCOURAGED TO CALL WHEN NEEDS ARISE. WILL CONTINUE TO MONITOR PATIENT FOR CHANGES IN STATUS.
[2016-12-21] MEDS: ALBUTEROL SULFATE 0.083% 2.5 MG/3 ML VIAL.NEB INH SCH ×3 (07:28→13:17)
[2016-12-21] MEDS: IPRATROPIUM BROM 0.5 MG/2.5 ML VIAL.NEB (ATROVENT) INH SCH ×3 (07:28→13:17)
[2016-12-21 08:00] VITALS: BP_SYST 103
--- NOTE | 2016-12-21 08:35 | NUR ---
NOTE PATIENT HAD EPISODE OF THROWING BREAKFAST TRAY. PATIENTS ROOM CLEANED BY EVS. PATIENTS BED LINENS CHANGED, PATIENT TURNED AND REPOSITIONED WITH PILLOW SUPPORT. PATIENTS COLOSTOMY APPLIANCE CHANGED AND SITE CLEANSED. PATIENT GIVEN MORNING MEDICATIONS, PAIN MEDICATION ADMINISTERED. WILL CONTINUE TO MONITOR PATIENT FOR CHANGES IN STATUS.
[2016-12-21] MEDS: DIVALPROEX SODIUM 500 MG TAB.SR.24H (DEPAKOTE ER) PO SCH (09:06)
[2016-12-21] MEDS: BACLOFEN 10 MG TABLET PO SCH ×2 (09:06→15:11)
[2016-12-21] MEDS: cefTRIAXone 1 GM in D5W 50 ML IV SCH (09:06)
[2016-12-21] MEDS: levETIRAcetam 500 MG TABLET PO SCH (09:06)
[2016-12-21] MEDS: GABAPENTIN 100 MG CAPSULE PO SCH ×2 (09:07→15:11)
[2016-12-21] MEDS: SODIUM BICARBONATE 650 MG TABLET PO SCH (09:07)
[2016-12-21] MEDS: guaiFENesin ER 600 MG TAB PO SCH (09:07)
[2016-12-21] MEDS: HYDROmorphone 2 MG/ML VIAL IVP PRN ×2 (09:08→15:19)
[2016-12-21] MEDS: NYSTATIN 15 GM TOPICAL POWDER TP SCH (09:08)
[2016-12-21] MEDS: HEPARIN SODIUM,PORCINE 5000 UNITS/ML VIAL SUBCUT SCH (09:09)
--- NOTE | 2016-12-21 09:51 | NUR ---
DISCHARGE PLANNING DC order back to [facility]. Faxed [facility] referral to [phone]. will follow up. Addendum: 12/21/16 at 1039 by Alexsandra MACK Spoke with VALERIE Cruz in admitting at [facility] requested DCP to confirm continued medications at [facility]. DOLLY Mercado made aware and will keep DCP informed. Will follow up. Addendum: 12/21/16 at 1522 by Alexsandra Rodríguez DP spoke with Tremayne in admitting at [facility] patient assigned to room 406 DOLLY to report [phone] bed available after 7pm. DOLLY Mercado made aware and will notify patient. Called contracted ambulance [facility] [phone] spoke with Chinyere loja ACLS (Trach Vent) transport crop picker 7pm. Placed transportation packet in nurses station.
--- NOTE | 2016-12-21 10:24 | NUR ---
1000 NOTE PATIENT RESTING COMFORTABLY AT THIS TIME. COMPLAINTS OF PAIN BEING TOLERABLE AT THIS TIME. PATIENT HAS NO NOTABLE SIGNS OF DISTRESS AT THIS TIME. PATIENT IS ON VENTILATOR, TOLERATING. PATIENT AWAITING DISCHARGE BACK TO [facility]. PATIENT AWARE. SPOKE WITH DR. CORADO REGARDING VENTILATOR, OK FOR PATIENT TO BE TRANSFERRED ON VENTILATOR. CASE MANAGEMENT AWARE. PATIENTS BED IN LOWEST POSITION, CALL LIGHT WITHIN REACH, AND SIDE RAILS ARE UP FOR SAFETY. PATIENT BELONGINGS WITHIN REACH OF PATIENT. WILL CONTINUE TO MONITOR PATIENT FOR CHANGES IN STATUS.
[2016-12-21 12:00] VITALS: BP_SYST 107
--- NOTE | 2016-12-21 12:55 | NUR ---
1200 NOTE PATIENT RESTING COMFORTABLY AT THIS TIME. COMPLAINTS OF PAIN BEING TOLERABLE AT THIS TIME. PATIENT HAS NO NOTABLE SIGNS OF DISTRESS AT THIS TIME. PATIENT IS ON VENTILATOR, TOLERATING. PATIENT AWAITING DISCHARGE BACK TO [facility]. PATIENT AWARE. CASE MANAGEMENT AWARE. PATIENTS BED IN LOWEST POSITION, CALL LIGHT WITHIN REACH, AND SIDE RAILS ARE UP FOR SAFETY. PATIENT BELONGINGS WITHIN REACH OF PATIENT. WILL CONTINUE TO MONITOR PATIENT FOR CHANGES IN STATUS.
--- NOTE | 2016-12-21 14:56 | NUR ---
1400 NOTE PATIENT RESTING COMFORTABLY AT THIS TIME. COMPLAINTS OF PAIN BEING TOLERABLE AT THIS TIME. PATIENT HAS NO NOTABLE SIGNS OF DISTRESS AT THIS TIME. PATIENT IS ON VENTILATOR, TOLERATING. PATIENT AWAITING DISCHARGE BACK TO [facility]. CASE MANAGEMENT AWARE. WILL FOLLOW UP REGARDING DISCHARGE. PATIENTS BED IN LOWEST POSITION, CALL LIGHT WITHIN REACH, AND SIDE RAILS ARE UP FOR SAFETY. PATIENT BELONGINGS WITHIN REACH OF PATIENT. WILL CONTINUE TO MONITOR PATIENT FOR CHANGES IN STATUS.
[2016-12-21 16:00] VITALS: BP_SYST 103
--- NOTE | 2016-12-21 16:05 | NUR ---
1600 NOTE PATIENT RESTING COMFORTABLY AT THIS TIME. COMPLAINTS OF PAIN BEING TOLERABLE AT THIS TIME, AFTER MEDICATION ADMINISTRATION. PATIENT HAS NO NOTABLE SIGNS OF DISTRESS AT THIS TIME. PATIENT IS ON VENTILATOR, TOLERATING. PATIENT AWAITING DISCHARGE BACK TO [facility]. CASE MANAGEMENT AWARE. PATIENT IS AWARE THAT GLUE MACHINE OPERATOR WITH BE AT 1900 PER CASE MANAGEMENT. ALSO TOLD THAT I WILL FOLLOW UP IF ANYTHING CHANGES BUT TO EXPECT TRANSPORT AFTER DINNER. WILL FOLLOW UP REGARDING DISCHARGE. PATIENTS BED IN LOWEST POSITION, CALL LIGHT WITHIN REACH, AND SIDE RAILS ARE UP FOR SAFETY. PATIENT BELONGINGS WITHIN REACH OF PATIENT. WILL CONTINUE TO MONITOR PATIENT FOR CHANGES IN STATUS.
--- NOTE | 2016-12-21 18:10 | NUR ---
DISCHARGE REPORT CALLED TO ROBBY JOHNSON; PATIENT REPORT GIVEN.
[2016-12-21 18:58] VITALS: BP_SYST 103
--- NOTE | 2016-12-21 19:35 | NUR ---
DISCHARGE Patient given medication reconciliation form and D/C instructions. Exit Care provided. Patient report given to EMS crew for transport, report called to Gerard at [facility]. discussed with patient the results and treatment provided. Patient is alert and oriented x3, patients baseline. Patient is transported by ALS transport with RT for ventilator. Patient in stable condition, ID band removed. IV catheter removed, intact and dressing applied, no active bleeding. Copies of chart sent by case management to [facility]. All belongings sent with patient.
== END 2016-12-21 19:35 | DRG 208 ==
LOC: SED 17:20 → SMU 19:18
PROVIDERS: ADMIT General Practice; ATTEND General Practice
PROC: 5A1945Z Respiratory Ventilation, 24-96 Consecutive Hours (ICD-10-PCS; principal; 2016-12-20)
DX: J96.20 Acute and chronic respiratory failure, unspecified whether with hypoxia or hypercapnia (principal); N17.0 Acute kidney failure with tubular necrosis; N39.0 Urinary tract infection, site not specified; J44.1 Chronic obstructive pulmonary disease with (acute) exacerbation; G82.20 Paraplegia, unspecified; E87.2 Acidosis; F23 Brief psychotic disorder; F11.20 Opioid dependence, uncomplicated; G89.4 Chronic pain syndrome; N18.3 Chronic kidney disease, stage 3 (moderate); G40.909 Epilepsy, unspecified, not intractable, without status epilepticus; E78.5 Hyperlipidemia, unspecified; E66.9 Obesity, unspecified; M62.838 Other muscle spasm; E86.1 Hypovolemia; F25.1 Schizoaffective disorder, depressive type; I51.7 Cardiomegaly; B96.89 Other specified bacterial agents as the cause of diseases classified elsewhere; Z79.899 Other long term (current) drug therapy; Z87.891 Personal history of nicotine dependence; Z88.0 Allergy status to penicillin; Z88.8 Allergy status to other drugs, medicaments and biological substances; Z93.0 Tracheostomy status; Z86.73 Personal history of transient ischemic attack (TIA), and cerebral infarction without residual deficits; Z91.19 Patient's noncompliance with other medical treatment and regimen
CPT/HCPCS: 36415; 36600; 71010; 80048; 80053; 81000-TC; 82803-TC; 83735-TC; 83880; 84484; 85025; 85610-TC; 85730-TC; 87070-TC; 87081; 87086; 87186-TC; 87205-TC; 92523; 93005; 94003; 94640; 94760; 96374; 96375; 99285; A5061; J0696; J1170; J1644; J2270; J2550; J3010; J7030; J7060